=== PATIENT | female | born 1945 | race Caucasian/White ===

== ENCOUNTER → 2024-01-18 13:22 | Outpatient (REF) | payer OTHER, SELFPAY | LOC: WDC 13:22 | PROVIDERS: ATTENDING PHYSICIAN Physician Assistant | DX: Z12.31 Encounter for screening mammogram for malignant neoplasm of breast (principal) | CPT/HCPCS: 77063; 77067 ==

== ENCOUNTER 2024-04-07 06:41 | Emergency (ER) | payer OTHER, SELFPAY ==
[2024-04-07 06:51] VITALS: BP 141/70
[2024-04-07 07:21] VITALS: BMI 24.8
[2024-04-07 07:26] VITALS: BP 126/55
[2024-04-07] MEDS: NSS 1000 IV (07:39)
[2024-04-07] MEDS: PROTONIX IV 40 MG IV (07:41)
[2024-04-07 07:48] LABS: % Basophils 0.5 % (0-2); % Eosinophils 0.4 % (0-6); % Immature Granulocytes 0.2 % (0-0.5); % Lymphocytes 10.4 % (20.5-51.1); % Monocytes 6.4 % (1.7-9.3); % Neutrophils 82.1 % (42.2-75.2); Absolute Lymphocytes 0.9 10^3/uL (1.2-3.4); Absolute Monocytes 0.6 10^3/uL (0.1-0.6); Hematocrit 39.4 % (37.0-47.0); Hemoglobin 13.5 g/dL (12.0-16.0); Mean Corp Hgb Conc. 34.3 g/dL (33.0-37.0); Mean Corpuscular Hgb 29.9 pg (27.0-31.0); Mean Corpuscular Volume 87.2 fL (81.0-99.0); Mean Platelet Volume 10.3 fL (7.4-10.4); Nucleated Red Blood Cells % 0 %; Platelet Count 202 10^3/uL (130-400); Red Blood Cell Count 4.52 10^6/uL (4.20-5.40); Red Cell Dist. Width 12.4 % (11.5-14.5); Urine Albumin Trace (Neg - Trace); Urine Bilirubin 1+ (Negative); Urine Character Clear (Clear); Urine Color Yellow; Urine Glucose Negative (Negative); Urine Ketone Negative (Negative); Urine Leukocyte 1+ (Negative); Urine Nitrite Negative (Negative); Urine Occult Blood Negative (Negative); Urine Urobilinogen Negative (Neg - 1+); White Blood Cell Count 8.6 10^3/uL (4.8-10.8)
[2024-04-07 08:00] VITALS: BP 123/55
[2024-04-07 08:00] LABS: ALT (SGPT) 21 U/L (0-35); AST (SGOT) 27 U/L (14-36); Albumin 4.8 g/dl (3.5-5.0); Alkaline Phosphatase 43 U/L (38-126); Blood Urea Nitrogen 20 mg/dl (7-17); Calcium 10.4 mg/dl (8.4-10.2); Carbon Dioxide 25 mmol/L (22-30); Chloride 105 mmol/L (98-107); Estimated Creatinine Clearance 49 ml/min; Glucose 147 mg/dl (70-99); Lipase 147 U/L (23-300); Potassium 4.1 mmol/L (3.5-5.1); Sodium 137 mmol/L (135-145); Total Bilirubin 0.6 mg/dl (0.2-1.3); Total Protein 7.2 g/dl (6.3-8.2); eGFR > 60.00
[2024-04-07 08:03] LABS: Urine Mucus Moderate
[2024-04-07 08:04] LABS: Urine Bacteria Moderate (Negative); Urine Red Blood Cell 0-2 /HPF (0-2)
--- NOTE | 2024-04-07 08:27 | ED.GENMED ---
Addendum entered and electronically signed by Jaimie Castorena PA-C 04/12/24 07:23:
Urine culture grew out strep and staph, not Enterococcus. It was sensitive to Macrobid, Bactrim, Augmentin. Patient had been here for abdominal pain and symptoms that she thought were from a small bowel obstruction. I spoke with the patient. She
is able to tolerate food and is not having any vomiting or fever but she does have some lingering lower abdominal pain. Given this we will treat with antibiotics. Bactrim interferes with losartan so we will do Macrobid twice a day.
Original Note:
History of Present Illness
General
Chief Complaint: Abdominal Pain
Source: patient
Exam Limitations: none
Time Seen by Provider: 04/07/24 07:02
Nursing documentation reviewed up to this point in time: agreed with
Travel History
Have you had any contact with someone who has COVID-19?: No
Do you have any symptoms of coronavirus? Fever > 100 degrees, chills, cough, shortness of breath, sore throat, loss of taste or smell, muscle aches, or headache?: No
History of Present Illness
History of Present Illness:
Pt presents to ED secondary to sudden onset of abdominal pain, starting around 10 pm. Pain continued until 5am this morning, when she had one episode of vomiting, followed by normal bowel movement. Since then, symptoms have improved significantly.
Abdominal pain described as sharp, nonradiating, without any alleviating/exacerbating symptoms. Denies trauma. Denies recent change in medications/diet. Patient has had symptoms in the past, including last year, when she was admitted and treated
for small bowel obstruction.
Past History
Past History
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
ED Past Surgical History: Bowel resection (Lysis of adhesions 1997, partial bowel resection for diverticulitis 2009) and Gynecological (Hysterectomy 1977)
Social History
Tobacco: Non-smoker
Personal:
Living: with family
Employment: Not employed
Family History
Family History: Other (Noncontributory)
Review of Systems
Review of Systems
Allergies reviewed?: Yes
All Other Systems: ROS reviewed and negative except as documented in HPI and ROS
Constitutional: Reports no symptoms
EENT: Reports no symptoms
Respiratory: Reports no symptoms
Cardiac: Reports no symptoms
ABD/GI: Reports abdominal pain, nausea and vomiting; Denies diarrhea
: Reports no symptoms
Musculoskeletal: Reports no symptoms
Skin: Reports no symptoms
Neurological: Reports no symptoms
Phy Exam
Physical Exam
Physical Exam:
Physical Exam
General: no apparent distress, not acutely ill. afebrile.
Head: nc/at. eomi
Neck: supple. no meningeal signs.
Heart: s1/s2 regular rate and rhythm, no murmur. equal radial pulses.
Lungs: no acute respiratory distress. clear bilaterally
Abdomen: normal bowel sounds. not tender.
Neuro: alert and oriented. no focal neurological deficits
Skin: no rash
Psychiatric: well kept. interactive and cooperative
Extremities: no edema. no calf tenderness.
Course
Orders/Labs/Results
Orders:
Orders
04/07/24 07:02
CR Obstruct Series W/pa Chest Urgent
Comment:
Reason For Exam: abd pain w hx SBO
04/07/24 07:36
CMP [Comprehensive Metabolic Panel] Urgent
Complete Blood Count/With Diff Urgent
Lipase Urgent
Urinalysis Reflex To Culture Urgent
Date Specimen was Collected: 04/07/24
Time Specimen was Collected: 07:29
Urine Microscopic Reflex Cult Urgent
Urine Culture Urgent
KEMAR Source: U
Specimen Description:
Date Specimen was Collected: 04/07/24
Time Specimen was Collected: 07:29
05/09/24 07:38
0.9% Sodium Chloride 1000 ml [Nss] 1,000 ml IV BOLUS
Pantoprazole [Protonix IV] 40 mg IV NOW STA
Abnormal Lab Results
04/07/24
07:36
Absolute Neuts (auto) 7.0 H 10^3/uL
(1.4-6.5)
Absolute Lymphs (auto) 0.9 L 10^3/uL
(1.2-3.4)
Neutrophils % 82.1 H %
(42.2-75.2)
Lymphocytes % 10.4 L %
(20.5-51.1)
BUN 20 H mg/dl
(7-17)
Glucose 147 H mg/dl
(70-99)
Calcium 10.4 H mg/dl
(8.4-10.2)
Urine Bilirubin 1+ A
(Negative)
Leukocyte Esterase Rfl 1+ A
(Negative)
Urine Bacteria (Reflex) Moderate A
(Negative)
04/07/24 07:36
04/07/24 07:36
Vital Signs
Initial and Last Documented VS:
Initial Vital Signs
Temp Pulse Resp BP Pulse Ox
98.8 F 80 16 141/70 97
04/07/24 06:51 04/07/24 06:51 04/07/24 06:51 04/07/24 06:51 04/07/24 06:51
Last Documented Vital Signs
Temp Pulse Resp BP Pulse Ox
98.8 F 73 16 120/64 100
04/07/24 06:51 04/07/24 10:45 04/07/24 10:45 04/07/24 10:45 04/07/24 10:45
MDM/Problems Addressed
MDM/Problems Addressed:
Patient with unremarkable workup in ED, including blood work and x-ray. Patient also remains asymptomatic, with stable vital signs. Patient's presenting symptoms concerning for potential recurrent ileus versus early small bowel obstruction, which
now appears to have resolved completely. Patient feels comfortable going home at this time, with recommendation to continue hydration, but limit diet to liquid diet only starting tomorrow. Patient will return to ED immediately with recurrent
abdominal pain/vomiting.
*Critical Care Note
Total Time (30-74mins, 75-104mins- exclusive of procedures): Not Applicable
ED Attending Note
-
Portions of this chart may have been created with voice recognition software.� Occasional wrong word or��sound alike� substitutions may have occurred due to the inherent limitations of voice recognition software.
Discharge Plan
Departure
Patient Disposition: Home (Routine Discharge)
Date of Disposition: 04/07/24
Time of Disposition: 10:31
Patient with high blood pressure during this ER visit?: Yes
Condition: Good
Discharge Problem:
Abdominal pain
Instructions: Abdominal Pain
Prescriptions:
No Action
losartan 50 mg Tablet
50 mg PO BID
clopidogrel [Plavix] 75 mg Tablet
75 mg PO DAILY
pantoprazole 20 mg Tablet,Delayed Release (Dr/Ec)
20 mg PO DAILY
metoprolol tartrate 50 mg Tablet
50 mg PO Q12H
aspirin 81 mg Tablet,Chewable
81 mg PO DAILY
calcium carbonate-vitamin D2 600 mg calcium- 200 unit Tablet
1 tab PO DAILY
ezetimibe [Zetia] 10 mg Tablet
10 mg PO PER PROTOCOL
Rx Instructions:
4x week
omega-3 fatty acids-vitamin E 1,000 mg Capsule
1 cap PO DAILY
rosuvastatin [Crestor] 20 mg Tablet
20 mg PO DAILY
coQ10 (ubiquinol) 100 mg Capsule
100 mg PO BID
Referrals:
Sin Escobar MD [Family Provider] -
Activity Restrictions/Additional Instructions:
As discussed, please follow-up with your primary care physician and/or surgeon with any further concerns. Please return to ED immediately with recurrent abdominal pain.
Interventions
Interventions:
*Risk Screen - Suicide Last Done: 04/07/24 07:21
*General Assessment Last Done: 04/07/24 07:21
*Neglect/Abuse Screening Last Done: 04/07/24 07:21
ED- Fall Risk Assessment Last Done: 04/07/24 07:21
*ED COVID-19 Vaccine History Last Done: 04/07/24 07:21
*Nursing Disposition Last Done: 04/07/24 10:45
FJ-Itrkvo-Ilqiyyitkl Assessment Last Done: 04/07/24 07:21
Discharge Date and Time
Discharge Date/Time: 04/07/24 10:55
Print Language: WELSH
[2024-04-07 09:00] VITALS: BP 134/56
[2024-04-07 10:12] VITALS: BP 120/67
[2024-04-07 10:45] VITALS: BP 120/64
--- NOTE | 2024-04-07 10:50 | EDRN ---
REviewed discharge instructions with patient. Verbalized understanding.
== END 2024-04-07 10:55 | disposition home or self-care (01) ==
LOC: EMR 06:41
PROVIDERS: EMERGENCY PHYSICIAN Emergency Medicine; FAMILY PHYSICIAN Internal Medicine
DX: R10.9 Unspecified abdominal pain (principal); K21.9 Gastro-esophageal reflux disease without esophagitis; I10 Essential (primary) hypertension; E78.00 Pure hypercholesterolemia, unspecified; Z86.73 Personal history of transient ischemic attack (TIA), and cerebral infarction without residual deficits; Z90.710 Acquired absence of both cervix and uterus
CPT/HCPCS: 99283; 96374; 96361; 74022; 80053; 81003; 81015; 83690; 85025; 87077; 87086; 87147; 87186

== ENCOUNTER 2024-07-01 02:14 | Inpatient (IN) | payer OTHER, SELFPAY ==
[2024-06-30 19:16] VITALS: BP 144/75
[2024-06-30 19:42] LABS: % Basophils 0.4 % (0-2); % Eosinophils 0.3 % (0-6); % Immature Granulocytes 0.2 % (0-0.5); % Lymphocytes 12.1 % (20.5-51.1); % Monocytes 7.5 % (1.7-9.3); % Neutrophils 79.5 % (42.2-75.2); Absolute Basophils 0.1 10^3/uL (0-0.2); Absolute Lymphocytes 1.5 10^3/uL (1.2-3.4); Absolute Monocytes 0.9 10^3/uL (0.1-0.6); Absolute Neutrophils 9.7 10^3/uL (1.4-6.5); Hemoglobin 14.1 g/dL (12.0-16.0); Mean Corp Hgb Conc. 35.3 g/dL (33.0-37.0); Mean Corpuscular Hgb 29.9 pg (27.0-31.0); Mean Corpuscular Volume 84.7 fL (81.0-99.0); Mean Platelet Volume 10.1 fL (7.4-10.4); Nucleated Red Blood Cells % 0 %; Platelet Count 254 10^3/uL (130-400); Red Blood Cell Count 4.72 10^6/uL (4.20-5.40); Red Cell Dist. Width 12.8 % (11.5-14.5); White Blood Cell Count 12.2 10^3/uL (4.8-10.8)
[2024-06-30 19:44] LABS: Urine Albumin 1+ (Neg - Trace); Urine Bilirubin 1+ (Negative); Urine Character Clear (Clear); Urine Color Yellow; Urine Glucose Negative (Negative); Urine Ketone Trace (Negative); Urine Leukocyte 2+ (Negative); Urine Nitrite Negative (Negative); Urine Occult Blood Trace (Negative); Urine Specific Gravity 1.015 (<1.030); Urine Urobilinogen 1+ (Neg - 1+); Urine pH 6.5 (5.0-9.0)
[2024-06-30 20:00] VITALS: BP 145/58
[2024-06-30 20:01] LABS: ALT (SGPT) 19 U/L (0-35); AST (SGOT) 28 U/L (14-36); Albumin 5.1 g/dl (3.5-5.0); Alkaline Phosphatase 47 U/L (38-126); Blood Urea Nitrogen 16 mg/dl (7-17); Calcium 10.2 mg/dl (8.4-10.2); Carbon Dioxide 27 mmol/L (22-30); Chloride 101 mmol/L (98-107); Glucose 137 mg/dl (70-99); Potassium 4.3 mmol/L (3.5-5.1); Sodium 138 mmol/L (135-145); Total Bilirubin 1.1 mg/dl (0.2-1.3); Total Protein 7.6 g/dl (6.3-8.2); eGFR 56.95
[2024-06-30 20:03] LABS: Lipase 100 U/L (23-300)
[2024-06-30 20:06] LABS: Urine Bacteria Few (Negative); Urine Red Blood Cell 0-2 /HPF (0-2); Urine White Cell 16-20 /HPF (0-5)
[2024-06-30 20:31] VITALS: BMI 24.4
--- NOTE | 2024-06-30 20:38 | ED.GENMED ---
History of Present Illness
General
Chief Complaint: Abdominal Pain
Source: patient
Exam Limitations: none
Time Seen by Provider: 06/30/24 20:11
History of Present Illness
History of Present Illness:
79-year-old female presents with lower abdominal pain onset last night worse today with associated vomiting. She denies urinary symptoms. No fever. She has a history remotely of diverticulitis with perforation requiring colon resection. She also
has a history of small bowel obstructions. She is on aspirin and Plavix. Last bowel movement yesterday. No chest pain. No other complaints at this time
Past History
Past History
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
ED Past Surgical History: Bowel resection (Lysis of adhesions 1997, partial bowel resection for diverticulitis 2009) and Gynecological (Hysterectomy 1977)
Social History
Tobacco: Non-smoker
Personal:
Living: with family
Employment: Not employed
Family History
Family History: Other (Noncontributory)
Phy Exam
Physical Exam
Physical Exam:
General: Well-appearing female no acute distress
HEENT: Normocephalic atraumatic
Heart: Regular rate and rhythm no murmurs
Lungs: Clear no wheeze or rales
Extremities: No cyanosis or edema abdomen soft tender to the lower abdomen left greater than the right. Mild guarding no rebound tenderness
Skin: Warm no rash
Course
Orders/Labs/Results
Orders:
Orders
06/30/24 19:22
IV Insert/Care/Rem.- Treatment PRN
Straight cath- Treatment ONCE
06/30/24 19:35
Complete Blood Count/With Diff Urgent
Comprehensive Metabolic Panel Urgent
Lipase Urgent
Urinalysis Reflex To Culture Urgent
Date Specimen was Collected: 06/30/24
Time Specimen was Collected: 19:22
Urine Microscopic Reflex Cult Urgent
Urine Culture Urgent
KEMAR Source: U
Specimen Description:
Date Specimen was Collected: 06/30/24
Time Specimen was Collected: 19:
06/30/24 20:30
CT Abd/pel W Iv And Oral Contr Urgent
Comment:
Reason For Exam: lower abdominal pain
0.9% Sodium Chloride 1000 ml [Nss] 1,000 ml IV BOLUS
Diphenhydramine [Benadryl] 50 mg IV NOW STA
Hydrocortisone Sod Succinate [Solu-Cortef] 200 mg IV NOW STA
Iohexol [Omnipaque] See Protocol PO NOW STA
06/30/24 20:51
Ondansetron Injectable [Zofran] 4 mg IV NOW STA
Abnormal Lab Results
06/30/24
19:35
WBC 12.2 H 10^3/uL
(4.8-10.8)
Absolute Neuts (auto) 9.7 H 10^3/uL
(1.4-6.5)
Absolute Monos (auto) 0.9 H 10^3/uL
(0.1-0.6)
Neutrophils % 79.5 H %
(42.2-75.2)
Lymphocytes % 12.1 L %
(20.5-51.1)
Glucose 137 H mg/dl
(70-99)
Albumin 5.1 H g/dl
(3.5-5.0)
Urine Ketones Trace A
(Negative)
Ur Occult Blood Reflex Trace A
(Negative)
Urine Bilirubin 1+ A
(Negative)
Leukocyte Esterase Rfl 2+ A
(Negative)
Urine WBC (Reflex) 16-20 A /HPF
(0-5)
Urine Bacteria (Reflex) Few A
(Negative)
Urine Albumin (Reflex) 1+ A
(Neg - Trace)
06/30/24 19:35
06/30/24 19:35
Vital Signs
Initial and Last Documented VS:
Initial Vital Signs
Temp Pulse Resp BP Pulse Ox
98.6 F 82 20 144/75 97
06/30/24 19:16 06/30/24 19:16 06/30/24 19:16 06/30/24 19:16 06/30/24 19:16
Last Documented Vital Signs
Temp Pulse Resp BP Pulse Ox
98.6 F 80 16 154/69 95
06/30/24 19:16 07/01/24 00:12 07/01/24 00:12 07/01/24 00:12 07/01/24 00:12
MDM/Problems Addressed
Differential Diagnosis Includes:
Abdominal pain with vomiting. Consider viral illness versus diverticulitis versus bowel obstruction
Check labs. Patient quite tender on exam. CT pending. Fluids ordered. She is allergic to IV dye but will pretreat with steroid and Benadryl. Given history of bowel resection and small body stature, oral contrast was ordered as well
*Critical Care Note
Total Time (30-74mins, 75-104mins- exclusive of procedures): Not Applicable
Update Note
Update Note:
CT reviewed and demonstrates high-grade small bowel obstruction with transition point in the right pelvis. Patient reexamined. Still no vomiting. Appears comfortable. Will admit to hospital.
ED Attending Note
-
Portions of this chart may have been created with voice recognition software.� Occasional wrong word or��sound alike� substitutions may have occurred due to the inherent limitations of voice recognition software.
Discharge Plan
Departure
Patient Disposition: Admit
Date of Disposition: 07/01/24
Time of Disposition: 00:20
Admit to: Med/Surg
Presentation/result/management discussed w/ accepting MD/DO: Hospitalist
Discharge Problem:
SBO (small bowel obstruction)
Prescriptions:
No Action
losartan 50 mg Tablet
50 mg PO BID
clopidogrel [Plavix] 75 mg Tablet
75 mg PO DAILY
pantoprazole 20 mg Tablet,Delayed Release (Dr/Ec)
20 mg PO DAILY
metoprolol tartrate 50 mg Tablet
50 mg PO Q12H
aspirin 81 mg Tablet,Chewable
81 mg PO DAILY
calcium carbonate-vitamin D2 600 mg calcium- 200 unit Tablet
1 tab PO DAILY
ezetimibe [Zetia] 10 mg Tablet
10 mg PO PER PROTOCOL
Rx Instructions:
4x week
omega-3 fatty acids-vitamin E 1,000 mg Capsule
1 cap PO DAILY
rosuvastatin [Crestor] 20 mg Tablet
20 mg PO DAILY
coQ10 (ubiquinol) 100 mg Capsule
100 mg PO BID
nitrofurantoin macrocrystal 100 mg capsule
100 mg PO BID 7 Days Qty: 14 0RF
Referrals:
Reilly Goetz MD [Family Provider] -
Interventions
Interventions:
*Risk Screen - Suicide Last Done: 06/30/24 19:16
*General Assessment Last Done: 06/30/24 19:16
*Neglect/Abuse Screening Last Done: 06/30/24 19:16
ED- Fall Risk Assessment Last Done: 06/30/24 19:16
*ED COVID-19 Vaccine History Last Done: 06/30/24 19:16
VN-Xkbrxm-Stjdwxkmvt Assessment Last Done: 06/30/24 21:30
Discharge Date and Time
Print Language: JAPANESE
[2024-06-30] MEDS: NSS 1000 IV (20:42)
[2024-06-30] MEDS: OMNIPAQUE 50 ML PO (20:56)
[2024-06-30] MEDS: ZOFRAN 4 MG IV (20:57)
[2024-06-30] MEDS: SOLU-CORTEF 200 MG IV (20:57)
[2024-06-30] MEDS: BENADRYL 50 MG IV (20:58)
[2024-06-30 22:00] VITALS: BP 140/56
[2024-07-01] VITALS (12 sets, daily range): BP systolic 111–154; BP diastolic 52–69; BMI 24.4
[2024-07-01] MEDS: DILAUDID 0.5 MG IV ×4 (00:39→18:27)
[2024-07-01] MEDS: FLUSH (NSS) 1 FLUSH IV (00:41)
[2024-07-01] MEDS: ZOFRAN 4 MG IV (00:44)
--- NOTE | 2024-07-01 01:20 | HPS.HSE ---
Family Physician
-
Family Physician: Reilly Goetz
Chief Complaint
-
abdominal pain and vomiting
History of Present Illness
Ms. Carmen Portillo is a 79 yo woman with hx CVA, essential hypertension, remote sigmoidectomy due to perforation and ex lap with lysis of adhesions 1997, recurrent SBO presents to the ER with abdominal pain and vomiting.
Symptoms started 8PM yesterday evening. She vomited 2-3 times. She tried to just eat clears at home but had pain so came to the ER. Not passing gas. No fevers/chills. No chest pain. No shortness of breath. No LE swelling.
Currently nausea and pain significantly improved post zofran and dilaudid.
Medical History
Past Medical History
Past Medical History: Reports Other
Additional Past Medical History:
ASCVD / Prior CVA
Hypertension
GERD
Diverticular Disease
Past Surgical History: Reports Other
Additional Past Surgical History:
INESSA / BSO
Ex Lap / LACHELLE (1997)
Sigmoidectomy (Diverticulitis with Perforation)
Right Tibial Marko
Right Foot ORIF
T&A
Social History
Tobacco: Non-smoker
Alcohol: Occasional
Drug: None
Family History
Family History: Not pertinent
Allergies / Home Medications
Allergies reflects when Allergies were last updated in [facility].
Home Medications with original date entered in [facility]
Allergy/Medication List:
Allergies
Allergy/AdvReac Type Severity Reaction Status Date / Time
iodine Allergy Swelling Verified 06/30/24 19:16
shrimp Allergy Tongue Verified 06/30/24 19:15
Swelling
Home Medications
aspirin 81 mg chewable tablet 81 mg PO DAILY Blood clot prevention/tx 12/27/22
calcium carb-ergocalciferol (vit D2) 600 mg calcium-200 unit tablet 1 tab PO DAILY Supplement 12/27/22
clopidogrel 75 mg tablet (Plavix) 75 mg PO DAILY Blood clot prevention/tx 12/27/22
coQ10 (ubiquinol) 100 mg capsule 100 mg PO BID Supplement 12/27/22
ezetimibe 10 mg tablet (Zetia) 10 mg PO .4XPER WEEK High cholesterol 12/27/22
losartan 50 mg tablet 50 mg PO BID Blood pressure 12/27/22
metoprolol tartrate 50 mg tablet 75 mg PO Q12H Blood pressure 12/27/22
omega-3 fatty acids-vitamin E 1,000 mg capsule 1 cap PO DAILY Supplement 12/27/22
pantoprazole 20 mg tablet,delayed release 20 mg PO DAILY Gastrointestinal issue 12/27/22
rosuvastatin 20 mg tablet (Crestor) 20 mg PO DAILY High cholesterol 12/27/22
Review of Systems
-
History Source: Patient
A 12 point ROS was completed and negative except as noted: Yes
Physical Exam
Vital Signs
Vital Signs
Temp Pulse Resp BP Pulse Ox
98.6 F 80 16 154/69 95
06/30/24 19:16 07/01/24 00:12 07/01/24 00:12 07/01/24 00:12 07/01/24 00:12
Physical Exam
General: No Apparent Distress and Conversant
HEENT: PERRLA
Respiratory: Clear; No Wheezes
Cardiac: S1/S2 and Regular Rhythm
GI: Soft and Non Tender
Musculoskeletal: No Edema
Skin: Warm and Dry; No Rash
Neuro: AO x 3
Psych: Calm
Laboratory Results
-
06/30/24 19:35
06/30/24 19:35
Laboratory Results
Total Bilirubin 1.1 mg/dl (0.2-1.3) 06/30/24 19:35
AST 28 U/L (14-36) 06/30/24 19:35
ALT 19 U/L (0-35) 06/30/24 19:35
Alkaline Phosphatase 47 U/L (38-126) 06/30/24 19:35
Lipase 100 U/L (23-300) 06/30/24 19:35
Data Reviewed
-
Diagnostic Radiology: Report Reviewed by me
Lab Data: Labs Reviewed by me
Impression/Plan
-
Ms. Carmen Portillo is a 79 yo woman with hx CVA, essential hypertension, remote sigmoidectomy due to perforation and ex lap with lysis of adhesions 1997, recurrent SBO presents to the ER with abdominal pain and vomiting.
Triage VS: T 98.6, P 82, RR 20, BP 144/75, SpO2 97%
LABS: WBC 12.2, Hg 14.1, PLT 254, Na 138, K+ 4.3, Cl 101, CO2 27, BUN 16, Cr 1.0, Glucose 137, T. Bili 1.1, AST 28, ALT 19, Alk Phos 47
Abdomen/Pelvis CT - moderate dilatation of the proximal and mis small bowel to the level of the right mid pelvis where there is a abrupt transition point... 'findings consistent with high-grade small bowel obstruction.'
MAR: Dilaudid x 2, Zofran x 2, Hydrocortisone, Benadryl (for contrast allergy)
Small Bowel Obstruction
Hx Sigmoidectomy
Hx lysis of adhesions 1997
Recurrent SBO
-admit to tele
-NPO
-IVF
-GS consult
-pain control
-zofran PRN
Hx CVA
-hold PLUG SHAPER HAND Plavix in case surgery indicated
-continue PLUG SHAPER HAND asa/statin
Essential HTN
-PLUG SHAPER HAND Metoprolol
-hold Losartan for now, monitor BP
GERD
-IV Protonix
Iodine allergy
-patient received steroids/benadryl pre-CT. she states hives usually start next day. will start daily claritin and have IV Benadryl PRN.
DVT PPx lovenox subQ
FULL CODE
76 minutes spent on patient evaluation, medical decision making, coordination of care
[2024-07-01] MEDS: LR 1000 IV ×2 (03:35→15:09)
[2024-07-01 06:45] LABS: Hematocrit 35.4 % (37.0-47.0); Hemoglobin 12.3 g/dL (12.0-16.0); Mean Corp Hgb Conc. 34.7 g/dL (33.0-37.0); Mean Corpuscular Hgb 30.7 pg (27.0-31.0); Mean Corpuscular Volume 88.3 fL (81.0-99.0); Mean Platelet Volume 10.6 fL (7.4-10.4); Platelet Count 213 10^3/uL (130-400); Red Blood Cell Count 4.01 10^6/uL (4.20-5.40); Red Cell Dist. Width 12.7 % (11.5-14.5); White Blood Cell Count 9.1 10^3/uL (4.8-10.8)
[2024-07-01 06:57] LABS: Blood Urea Nitrogen 14 mg/dl (7-17); Calcium 9.7 mg/dl (8.4-10.2); Carbon Dioxide 27 mmol/L (22-30); Chloride 105 mmol/L (98-107); Estimated Creatinine Clearance 48 ml/min; Glucose 144 mg/dl (70-99); Potassium 4.3 mmol/L (3.5-5.1); Sodium 140 mmol/L (135-145); eGFR > 60.00
[2024-07-01] MEDS: NSS (PRESERVATIVE FREE) 10 ML IV (07:51)
[2024-07-01] MEDS: PROTONIX IV 40 MG IV (07:51)
[2024-07-01] MEDS: TYLENOL 650 MG PO (07:54)
[2024-07-01] MEDS: LOPRESSOR 75 MG PO (07:59)
[2024-07-01] MEDS: LOW STRENGTH ASPIRIN 81 MG PO (08:00)
[2024-07-01] MEDS: CLARITIN 10 MG PO (09:27)
--- NOTE | 2024-07-01 11:38 | CON.GS ---
Addendum entered and electronically signed by Andres Mak MD 07/01/24 14:39:
Patient seen and examined in follow-up this afternoon with nurse practitioner. Agree with documented consultation note.
HPI: 79-year-old female with a past abdominal surgical history notable for having undergone INESSA/BSO, sigmoid resection for diverticulitis and exploratory laparotomy lysis of adhesions in 1997 for small bowel obstruction. She was briefly
hospitalized last November 2022 for small bowel obstruction which resolved with medical management.
She now presents with the acute onset of lower abdominal pain more on the left side and central. Nausea vomiting. Worsening pain yesterday despite fasting prompted emergency department evaluation overnight. She continues with some mild
discomfort/pain but it is improved from yesterday. No further vomiting since hospitalization and emergency department presentation. No recent flatus or bowel movement. Her bowels were moving regularly prior to symptoms.
Medical history notable for CVA, GERD and hypertension. Pertinent past surgical history as outlined above.
AFVSS
NAD AAOx3 pleasant and participatory for history taking comfortable in hospital bed
Abdomen: Softly protuberant, some tympany on percussion, mild tenderness left lower quadrant suprapubic but no rebound rigidity or guarding. Laparotomy surgical scar. No detectable hernias.
CT imaging reviewed. Oral contrast opacifies approximately distended small bowel loops. Distal small bowel loops collapsed with what appears to be a transition point in the region of the pelvis most likely. No radiographic findings suggestive of
closed-loop obstruction, bowel ischemia or threat.
Assessment/plan: 79-year-old female with recurrent small bowel obstruction likely secondary to adhesions given past surgical history as outlined above.
Given clinical stability and radiographic imaging without signs suggestive of bowel compromise or immediate threat recommend continued expectant management
Nausea has not returned nor vomiting and pain controlled therefore can hold on NG tube placement unless is to develop worsening obstructive symptoms.
Follow-up abdominal x-ray tomorrow a.m. to monitor for progression of ingested oral contrast from CT imaging
Otherwise continue with routine supportive care and IV fluid hydration
Will follow, thank you
Original Note:
Consultation
-
Date/Time Consultation Requested: 07/01/24 1017
Requesting Provider: Reagan
Medical History
-
Chief Complaint: abdominal pain
History of Present Illness:
Ms. Portillo is an 79 yo female with a h/o CVA on DAPT, INESSA/BSO, perforated diverticulitis with sigmoidectomy in the with subsequent development of small bowel obstruction from adhesions with exploratory laparotomy for LACHELLE with
cecopexy/appendectomy in 1997 without recurrence of obstruction until November, when she presented to for a SBO which resolved with medical management alone. She now presents with 2 days of LLQ abdominal discomfort with nausea and vomiting.
She notes that she has been doing well since her prior SBo and has been following a low fiber diet without recurrence of symptoms. Earlier this week, she ate a BLT and then the following day had some stuffed peppers. Several hours after having the
peppers, she developed LLQ pain near midline which has persisted since. She has not been able to pass flatus or stools since then and noted significant nausea with vomiting that night as well. Yesterday, she placed herself on a clear liquid diet but
her symptoms persisted causing her to present over night for evaluation. She currently denies nausea and notes she has not had any further vomiting since the initial onset of symptoms. Discomfort persists to the medial LLQ which she rates as a 2/10
with mild focal tenderness on exam. She denies fevers or chills.
Past Medical History
Past Medical History: CVA, Diverticulitis, GERD and HTN
Past Surgical History: Bowel Resection (sigmoidectomy), Gynecological (INESSA/BSO), Orthopedic (Right foot ORIF, Right Tibial sole), Tonsilectomy and Other (Ex Lap with LACHELLE and cecopexy/appendectomy 1997)
Social History
Tobacco: Non-Smoker
Alcohol: Occasional
Drug: None
Allergies / Home Medications
Allergy/AdvReac Type Severity Reaction Status Date / Time
iodine Allergy Swelling Verified 06/30/24 19:16
shrimp Allergy Tongue Verified 06/30/24 19:15
Swelling
�Medication �Instructions �Recorded �Confirmed �Type
aspirin 81 mg chewable tablet 81 mg PO DAILY Blood clot 12/27/22 07/01/24 History
prevention/tx
clopidogrel 75 mg tablet (Plavix) 75 mg PO HS Blood clot 12/27/22 07/01/24 History
prevention/tx
coQ10 (ubiquinol) 100 mg capsule 100 mg PO BID Supplement 12/27/22 07/01/24 History
ezetimibe 10 mg tablet (Zetia) 10 mg PO SUMOWEFR High cholesterol 12/27/22 07/01/24 History
losartan 50 mg tablet 50 mg PO BID Blood pressure 12/27/22 07/01/24 History
amlodipine 5 mg tablet (Norvasc) 5 mg PO DAILY Blood Pressure 07/01/24 07/01/24 History
metoprolol succinate 50 mg 75 mg PO BID Blood Pressure 07/01/24 07/01/24 History
tablet,extended release 24 hr
(Toprol XL)
pantoprazole 40 mg tablet,delayed 40 mg PO DAILY Gastrointestinal 07/01/24 07/01/24 History
release (Protonix) Issue
rosuvastatin 20 mg tablet 20 mg PO HS High Cholesterol 07/01/24 07/01/24 History
Review of Systems
-
A 10 point review of systems was completed, and was negative except as per HPI.
Physical Exam
Vital Signs
Temp Pulse Resp BP Pulse Ox
98.6 F 65 13 127/55 93
06/30/24 19:16 07/01/24 07:00 07/01/24 07:00 07/01/24 07:00 07/01/24 07:00
06/30/24 07/01/24 07/02/24
06:59 06:59 06:59
Actual Weight 64.4 kg
Body Mass Index (BMI) 24.4
Lab Results
07/01/24 06:06
07/01/24 06:06
WBC 9.1 10^3/uL (4.8-10.8) 07/01/24 06:06
Hgb 12.3 g/dL (12.0-16.0) 07/01/24 06:06
Hct 35.4 % (37.0-47.0) L 07/01/24 06:06
Plt Count 213 10^3/uL (130-400) 07/01/24 06:06
Abs Immat Gran (auto) 0.0 10^3/uL (0-0.05) 06/30/24 19:35
Neutrophils % 79.5 % (42.2-75.2) H 06/30/24 19:35
Physical Exam
General: Well Developed and Well Nourished
HEENT: Moist Mucous Membranes
Respiratory: Non Labored Respirations
GI: Soft, Tender (left of midline) and Distended (tympanitic)
Skin: Warm and Dry
Neuro: Awake, Alert and AO x 3
Psych: Calm
Data Reviewed
-
CT Scan: Image Personally Visualized and interpreted, Report Reviewed by me, Discussed with Physician, Discussed with Nurse and Discussed with Patient
Labs: Labs Reviewed by me, Discussed with Physician and Discussed with Patient
Old Records: Reviewed
Assessment / Plan
-
Ms. Portillo is an 79 yo female with a h/o CVA on DAPT, INESSA/BSO, perforated diverticulitis with sigmoidectomy in the with subsequent development of small bowel obstruction from adhesions with exploratory laparotomy for LACHELLE with
cecopexy/appendectomy in 1997 without recurrence of obstruction until November, when she presented to for a SBO which resolved with medical management alone. She developed left sided abdominal pain 2 days ago with nausea and vomiting. Pain
has persisted with resolution of n/v. CT imaging reviewed with findings consistent with a high grade sbo with transition point in the pelvis suspect secondary to adhesions. There is no evidence of bowel threat or compromise on imaging or exam. She
is afebrile with stable vital signs. She has mild leukocytosis.
--Keep NPO, ok for ice chips for comfort only
--NGT placement if vomiting recurs, ok to hold off for now
--IVF while NPO
--No plans for emergent surgery at this time, will follow for resolution with bowel rest/supportive care. Hold Plavix in case surgery becomes necessary.
--- NOTE | 2024-07-01 14:32 | W.PN.UPDATE ---
Update Note
Progress Note Update
Non-billable addendum (H&P entered 07/01 1 AM)
admitted with high-grade SBO (ate BLT and stuffed peppers earlier this week)
GS consulting and currently managing SBO conservatively
Assessment:
SBO
Hx of prior SBO
Hx of prior Sigmoidectomy
- CT: Findings consistent with high-grade small bowel obstruction with multiple dilated proximal and mid small bowel loops with transient point within the pelvis. Small amount of mesenteric edema and free fluid within the pelvis.
- conservative management with NPO, IVF, pain control, anti-emetics
- NGT as needed if vomiting
Hx of CVA
- holding Plavix in case of operative intervention
- continue ASA/Statin
Essential HTN
- continue BB
- hold ARB
GERD
- continue PPI IV
Iodine allergy
- prn Benadryl/Claritin for post-contrast hives
DVT ppx: Lovenox
Code: Full
[2024-07-01] MEDS: LOVENOX 40 MG SC (17:15)
[2024-07-01] MEDS: CRESTOR 20 MG PO (17:16)
[2024-07-01] MEDS: TOPROL XL 75 MG PO (19:51)
[2024-07-01] MEDS: BENADRYL 25 MG PO (21:40)
[2024-07-02 03:12] VITALS: BP 121/48
[2024-07-02] MEDS: LR 1000 IV (04:17)
[2024-07-02 07:00] VITALS: BP 125/48
[2024-07-02] MEDS: TOPROL XL 75 MG PO ×2 (07:53→19:46)
[2024-07-02] MEDS: CLARITIN 10 MG PO (07:53)
[2024-07-02] MEDS: NORVASC 5 MG PO (07:55)
[2024-07-02] MEDS: LOW STRENGTH ASPIRIN 81 MG PO (07:55)
[2024-07-02] MEDS: NSS (PRESERVATIVE FREE) 10 ML IV (07:56)
[2024-07-02] MEDS: PROTONIX IV 40 MG IV (07:56)
[2024-07-02 09:36] LABS: Blood Urea Nitrogen 17 mg/dl (7-17); Calcium 8.7 mg/dl (8.4-10.2); Carbon Dioxide 22 mmol/L (22-30); Chloride 108 mmol/L (98-107); Estimated Creatinine Clearance 48 ml/min; Glucose 66 mg/dl (70-99); Potassium 3.8 mmol/L (3.5-5.1); Sodium 137 mmol/L (135-145); eGFR > 60.00
--- NOTE | 2024-07-02 09:49 | W.PN.HOSP.TC ---
Today's Communication/Plan
-
clears
cap IVF
Assessment / Plan
Assessment / Plan
Assessment:
SBO
Hx of prior SBO
Hx of prior Sigmoidectomy
- CT: Findings consistent with high-grade small bowel obstruction with multiple dilated proximal and mid small bowel loops with transient point within the pelvis. Small amount of mesenteric edema and free fluid within the pelvis.
- f/u AXR 07/02: Oral contrast is now present throughout the colon, extending to the rectum. There is persistent mildly dilated loops of small bowel projecting over the mid abdomen. Constellation of findings likely represents resolving obstruction.
- never required NGT
- now start clears
- can cap IVF
- pain control, anti-emetics prn
Hx of CVA
- holding Plavix in case of operative intervention
- continue ASA/Statin
Essential HTN
- continue BB
- hold ARB
GERD
- continue PPI
Iodine allergy
- prn Benadryl/Claritin for post-contrast hives
DVT ppx: Lovenox
Code: Full
Anticipated Discharge: 24 - 48 hours
Subjective/Interval History
-
Date of Service: July 02, 2024
passing some gas and stool last evening, reports abd pain improving as well
AXR showing contrast passage into colon
Objective Data
-
Labs:
Laboratory Results
07/02/24
07:05
WBC Pending
Hgb Pending
Hct Pending
Plt Count Pending
Sodium 137
Potassium 3.8
Chloride 108 H
Carbon Dioxide 22
BUN 17
Creatinine 0.8
Glucose 66 L
Calcium 8.7
Vital Signs:
Vital Signs
Temp Pulse Resp BP Pulse Ox
98.4 F 71 18 125/48 94
07/02/24 07:00 07/02/24 07:53 07/02/24 07:00 07/02/24 07:53 07/02/24 08:57
Physical Exam
-
General: No Apparent Distress
HEENT: Normocephalic and Atraumatic
Respiratory: Negative Wheezes
Cardiac: Regular Rhythm and S1/S2
GI: Soft and Nontender
Genito-urinary: No Costovertebral Tender
Musculoskeletal: No Edema
Neuro: AO x 3
Hematologic / Lymphatic: No Lymphadenopathy
Psych: Calm
Data Reviewed
-
Total Time Spent with Patient (in minutes): 41
Labs: Labs Reviewed by me
--- NOTE | 2024-07-02 10:42 | CM ---
CM following re: discharge planning.
Reviewed pt's chart, met with pt.
Pt is an 79 year old female, admitted with primary dx of Small Bowel Obstruction.
Pt reports she lives with in a 2SH, 3 steps to enter, has 3 supportive children. 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 No DME, VN or SNF history.
PCP: Reilly Goetz
Pharmacy' [facility]
D/C plan: home with anticipated no needs. Family to transport at discharge.
CM will follow with discharge plan updates as hospitalization progresses
[2024-07-02 11:00] VITALS: BP 127/64
[2024-07-02 11:06] LABS: Hematocrit 33.8 % (37.0-47.0); Hemoglobin 11.6 g/dL (12.0-16.0); Mean Corp Hgb Conc. 34.3 g/dL (33.0-37.0); Mean Corpuscular Hgb 30.7 pg (27.0-31.0); Mean Corpuscular Volume 89.4 fL (81.0-99.0); Mean Platelet Volume 10.5 fL (7.4-10.4); Platelet Count 165 10^3/uL (130-400); Red Blood Cell Count 3.78 10^6/uL (4.20-5.40); Red Cell Dist. Width 12.8 % (11.5-14.5); White Blood Cell Count 6.3 10^3/uL (4.8-10.8)
--- NOTE | 2024-07-02 13:51 | W.PN.GS2 ---
Addendum entered and electronically signed by Andres Mak MD 07/02/24 15:12:
Patient seen and examined with surgical PUBLIC SERVICE ADMINISTRATOR. Agree with documented progress note with additions noted here. This is a delayed entry.
Patient reports clinical improvement with passage of flatus and bowel movement. Less abdominal pain and no nausea or vomiting. She still feels a bit crampy.
AFVSS
ABD: Soft, mild distention/protuberance, nontender
X-ray reviewed. Oral contrast from CT imaging study throughout colon. 1 or 2 loops of small bowel with mild gaseous distention but no air-fluid levels
Assessment/plan: 79-year-old female with recurrent partial small bowel obstruction
Clinically and radiographically improving
Start on clear liquid diet and follow
Original Note:
Today's Communication / Plan
-
Clear liquids
Assessment / Plan
-
79-year-old female with recurrent small bowel obstruction likely secondary to adhesions given past surgical history
Passing flatus/stools
XR abd with passage of contrast into the colon, some small bowel distention still noted
AFVSS
--Advance to clears today
--Follow exams/bowel pattern
--Analgesics/antiemetics prn
Subjective Data
-
Date of Service: July 02, 2024
Patient seen and examined at bedside with Dr. Mak. Denies n/v. Tolerating clears thus far. Passed some stools overnight with flatus.
Objective Data
-
Intake and Output
07/01/24 07/02/24 07/03/24
06:59 06:59 06:59
Other:
Number of approximated MODERATE 3
amounts of urine
Vital Signs
Temp Pulse Resp BP Pulse Ox
98.8 F 81 18 127/64 95
07/02/24 11:00 07/02/24 11:00 07/02/24 11:00 07/02/24 11:00 07/02/24 11:00
Lab Results
07/02/24 07:05
07/02/24 07:05
Calcium 8.7 mg/dl (8.4-10.2) 07/02/24 07:05
Magnesium 2.0 mg/dl (1.6-2.3) 07/01/24 06:06
Total Bilirubin 1.1 mg/dl (0.2-1.3) 06/30/24 19:35
AST 28 U/L (14-36) 06/30/24 19:35
ALT 19 U/L (0-35) 06/30/24 19:35
Alkaline Phosphatase 47 U/L (38-126) 06/30/24 19:35
Total Protein 7.6 g/dl (6.3-8.2) 06/30/24 19:35
Albumin 5.1 g/dl (3.5-5.0) H 06/30/24 19:35
Physical Exam
-
General: NAD
Neuro: Alert and Oriented
Resp: No distress, RRR
ABD: Soft
Mild distention
No tenderness
[2024-07-02 15:00] VITALS: BP 120/44
[2024-07-02] MEDS: LOVENOX 40 MG SC (17:05)
[2024-07-02] MEDS: CRESTOR 20 MG PO (17:05)
[2024-07-02 19:24] VITALS: BP 140/56
[2024-07-02 23:03] VITALS: BP 129/52
[2024-07-03 03:08] VITALS: BP 125/55
[2024-07-03 07:00] VITALS: BP 118/55
[2024-07-03] MEDS: NORVASC 5 MG PO (08:01)
[2024-07-03] MEDS: CLARITIN 10 MG PO (08:01)
[2024-07-03] MEDS: LOW STRENGTH ASPIRIN 81 MG PO (08:01)
[2024-07-03] MEDS: TOPROL XL 75 MG PO ×2 (08:01→21:22)
[2024-07-03] MEDS: PROTONIX 40 MG PO (08:01)
--- NOTE | 2024-07-03 10:27 | W.PN.GS2 ---
Addendum entered and electronically signed by Andres Mak MD 07/03/24 10:49:
Patient seen and examined with surgical SEDIMENTATIONIST. Agree with documented progress note.
Patient feels better than initially but still with cramps lower abdominal fullness and sensation of distention.
Tolerating clears without nausea but appetite not returning
AFVSS
ABD: Softly distended, mild tenderness lower abdomen. No rebound rigidity or guarding. Lower vertical midline surgical scar. Pfannenstiel surgical scar.
Assessment/plan: 79-year-old female with recurrent partial small bowel obstruction likely secondary to adhesions
Mild persistent low-grade obstructive symptoms
Dulcolax suppository x 1
follow up abd x ray tomorrow AM
- if significant improvment may consider SBFT tomorrow
- if continued pSBO symptoms/sign likely to OR for lap possible open lysis
Original Note:
Today's Communication / Plan
-
NPO after MN for tentative OR
Assessment / Plan
-
79-year-old female with recurrent small bowel obstruction likely secondary to adhesions given past surgical history
XR abd with passage of contrast into the colon, some small bowel distention still noted suggestive of a partial obstruction
+bloating/discomfort persists. Passing flatus/stools.
AFVSS
--Clears as tolerated
--Dulcolax suppository today
--Follow exams/bowel pattern
--Analgesics/antiemetics prn
--Medical management as per primary mata
--Continue to hold Plavix. LD was 06/29
Pending patient progress will plan either OR in am if no improvement/worsening symptoms vs SBFT if feeling better. NPO after MN.
Subjective Data
-
Date of Service: July 03, 2024
Patient seen and examined at bedside with Dr. Mak. Denies n/v. Cramping and abdominal pain overnight into this am. Passed a small BM last night.
Objective Data
-
Intake and Output
07/02/24 07/03/24 07/04/24
06:59 06:59 06:59
Intake Total 1200 / 1200
Balance 1200 / 1200
Intake:
Oral fluids 1200 / 1200
Other:
Number of approximated MODERATE 3 3
amounts of urine
Vital Signs
Temp Pulse Resp BP Pulse Ox
98.2 F 67 18 118/55 98
07/03/24 07:00 07/03/24 08:01 07/03/24 07:00 07/03/24 08:01 07/03/24 08:16
Lab Results
07/02/24 07:05
07/02/24 07:05
Calcium 8.7 mg/dl (8.4-10.2) 07/02/24 07:05
Magnesium 2.0 mg/dl (1.6-2.3) 07/01/24 06:06
Total Bilirubin 1.1 mg/dl (0.2-1.3) 06/30/24 19:35
AST 28 U/L (14-36) 06/30/24 19:35
ALT 19 U/L (0-35) 06/30/24 19:35
Alkaline Phosphatase 47 U/L (38-126) 06/30/24 19:35
Total Protein 7.6 g/dl (6.3-8.2) 06/30/24 19:35
Albumin 5.1 g/dl (3.5-5.0) H 06/30/24 19:35
Physical Exam
-
General: NAD
Neuro: Alert and Oriented
Resp: No distress, RRR
ABD: Soft
Mild distention
Mild generalized tenderness
[2024-07-03 11:00] VITALS: BP 157/70
--- NOTE | 2024-07-03 12:12 | W.PN.HOSP.TC ---
Today's Communication/Plan
-
clears and repeat imaging in AM to determine if continuing with ongoing conservative management vs operative intervention
Assessment / Plan
Assessment / Plan
Assessment:
SBO
Hx of prior SBO
Hx of prior Sigmoidectomy
- CT: Findings consistent with high-grade small bowel obstruction with multiple dilated proximal and mid small bowel loops with transient point within the pelvis. Small amount of mesenteric edema and free fluid within the pelvis.
- f/u AXR 07/02: Oral contrast is now present throughout the colon, extending to the rectum. There is persistent mildly dilated loops of small bowel projecting over the mid abdomen. Constellation of findings likely represents resolving obstruction.
- never required NGT
- continue clears
- suppositories
- serial imaging in AM
- may need OR for lysis of adhesions if no improvement in 24 hours
- pain control, anti-emetics prn
Hx of CVA
- holding Plavix in case of operative intervention
- continue ASA/Statin
Essential HTN
- continue BB
- hold ARB
GERD
- continue PPI
Iodine allergy
- prn Benadryl/Claritin for post-contrast hives
DVT ppx: Lovenox
Code: Full
Anticipated Discharge: 24 - 48 hours
Subjective/Interval History
-
Date of Service: July 03, 2024
cramping and abd pain overnight, small BM last night
Objective Data
-
Vital Signs:
Vital Signs
Temp Pulse Resp BP Pulse Ox
98.3 F 74 18 157/70 97
07/03/24 11:00 07/03/24 11:00 07/03/24 11:00 07/03/24 11:00 07/03/24 11:00
I&O
07/02/24 07/03/24 07/04/24
06:59 06:59 06:59
Intake Total 1200 / 1200
Balance 1200 / 1200
Physical Exam
-
General: No Apparent Distress
HEENT: Normocephalic and Atraumatic
Respiratory: Negative Wheezes
Cardiac: Regular Rhythm and S1/S2
GI: Soft
Genito-urinary: No Costovertebral Tender
Neuro: AO x 3
Psych: Calm
Data Reviewed
-
Total Time Spent with Patient (in minutes): 42
Labs: Labs Reviewed by me
[2024-07-03 15:00] VITALS: BP 145/56
[2024-07-03] MEDS: DULCOLAX 10 MG RECTAL (15:26)
[2024-07-03] MEDS: LOVENOX 40 MG SC (17:11)
[2024-07-03] MEDS: CRESTOR 20 MG PO (17:11)
[2024-07-03 23:19] VITALS: BP 144/60
[2024-07-04] VITALS (11 sets, daily range): BP systolic 105–149; BP diastolic 41–74
[2024-07-04] MEDS: CLARITIN 10 MG PO (08:18)
[2024-07-04] MEDS: TOPROL XL 75 MG PO (08:21)
[2024-07-04] MEDS: PROTONIX 40 MG PO (08:21)
[2024-07-04] MEDS: NORVASC 5 MG PO (08:22)
[2024-07-04 10:05] LABS: Hematocrit 38.4 % (37.0-47.0); Hemoglobin 13.4 g/dL (12.0-16.0); Mean Corp Hgb Conc. 34.9 g/dL (33.0-37.0); Mean Corpuscular Volume 85.9 fL (81.0-99.0); Mean Platelet Volume 10.2 fL (7.4-10.4); Platelet Count 243 10^3/uL (130-400); Red Blood Cell Count 4.47 10^6/uL (4.20-5.40); Red Cell Dist. Width 12.3 % (11.5-14.5)
--- NOTE | 2024-07-04 10:26 | W.PN.GS2 ---
Addendum entered and electronically signed by Elver Vogt MD 07/04/24 10:49:
I saw and examined the patient independently.
[employer] Team Member's note was reviewed and I agree with the note, assessment and plan except where noted below.
Comment: 79-year-old female with recurrent adhesive small bowel obstructions. Clinically improved however given the recurrent nature and decreased quality of life her small bowel obstructions pose we will continue with planned diagnostic
laparoscopy today. All questions answered.
Dr. Mak will obtain consent prior to surgery.
IV antibiotics ordered on-call to the OR.
Original Note:
Today's Communication / Plan
-
OR today
Assessment / Plan
-
79-year-old female with recurrent small bowel obstruction likely secondary to adhesions given past surgical history
XRs abd with passage of contrast into the colon, some small bowel distention still noted suggestive of a partial obstruction
+Small stools, not much flatus. Cramping with clear liquids yesterday.
AFVSS
--NPO for OR today for dx laparoscopy with Dr. Mak
--Analgesics/antiemetics prn
--Medical management as per primary mata
--Continue to hold Plavix. LD was 06/29
Subjective Data
-
Date of Service: July 04, 2024
Patient seen and examined at bedside with Dr. vogt. Not passing much flatus but did have a small stool yesterday. Denies pain today. Feeling better than previous but not back to normal yet.
Objective Data
-
Intake and Output
07/03/24 07/04/24 07/05/24
06:59 06:59 06:59
Intake Total 1200 / 1200 1160 / 1160
Balance 1200 / 1200 1160 / 1160
Intake:
Oral fluids 1200 / 1200 1160 / 1160
Other:
Number of approximated MODERATE 3 3
amounts of urine
Vital Signs
Temp Pulse Resp BP Pulse Ox
98.5 F 63 18 149/68 97
07/04/24 07:00 07/04/24 07:00 07/04/24 07:00 07/04/24 07:00 07/04/24 07:00
Lab Results
07/04/24 09:13
Calcium 8.7 mg/dl (8.4-10.2) 07/02/24 07:05
Magnesium 2.0 mg/dl (1.6-2.3) 07/01/24 06:06
Total Bilirubin 1.1 mg/dl (0.2-1.3) 06/30/24 19:35
AST 28 U/L (14-36) 06/30/24 19:35
ALT 19 U/L (0-35) 06/30/24 19:35
Alkaline Phosphatase 47 U/L (38-126) 06/30/24 19:35
Total Protein 7.6 g/dl (6.3-8.2) 06/30/24 19:35
Albumin 5.1 g/dl (3.5-5.0) H 06/30/24 19:35
Physical Exam
-
General: NAD
Neuro: Alert and Oriented
Resp: No distress, RRR
ABD: Soft
Minimal distention
NT
[2024-07-04 10:38] LABS: INR 1.04; PT 13.4 Sec (11.4-14.6)
[2024-07-04 10:39] LABS: APTT 41.7 Sec (23.4-35.0)
--- NOTE | 2024-07-04 10:48 | W.PN.HOSP.TC ---
Today's Communication/Plan
-
NPO
f/w surgery recommendation
c/w BB, PPI
Assessment / Plan
Assessment / Plan
Physical Exam
General: No Apparent Distress and Conversant
HEENT: PERRLA
Respiratory: Clear; No Wheezes
Cardiac: S1/S2 and Regular Rhythm
GI: Soft and mildly tender. Normal BS
Musculoskeletal: No Edema
Skin: Warm and Dry; No Rash
Neuro: AO x 3
Psych: Calm
Assessment:
SBO
Hx of prior SBO
Hx of prior Sigmoidectomy
- CT: Findings consistent with high-grade small bowel obstruction with multiple dilated proximal and mid small bowel loops with transient point within the pelvis. Small amount of mesenteric edema and free fluid within the pelvis.
- f/u AXR 07/02: Oral contrast is now present throughout the colon, extending to the rectum. There is persistent mildly dilated loops of small bowel projecting over the mid abdomen. Constellation of findings likely represents resolving obstruction.
- She feels less pain, passed gas over night. Had rectal suppository yesterday. WBC is normal now.
- never required NGT
- She is NPO for diagnostic laparoscopy
- pain control, anti-emetics prn
- Appreciate surgery help
Hx of CVA
- holding Plavix in case of operative intervention
- continue ASA/Statin
Essential HTN
- continue BB
- hold ARB
GERD
- continue PPI
Iodine allergy
- prn Benadryl/Claritin for post-contrast hives
DVT ppx: Lovenox
Code: Full
Total time spent to see the patient, examine the patient on the floor, review data and lab results, discuss treatment plan with patient, surgery team, nursing staff around 55 minutes.
Anticipated Discharge: 24 - 48 hours
Subjective/Interval History
-
Date of Service: July 04, 2024
Less pain, passed gas over night but feels still obstructed ( partially)
No chest pain
No fevers
Objective Data
-
Labs:
Laboratory Results
07/04/24
09:13
WBC 6.0
Hgb 13.4
Hct 38.4
Plt Count 243 D
PT 13.4
INR 1.04
APTT 41.7 H
Sodium Pending
Potassium Pending
Chloride Pending
Carbon Dioxide Pending
BUN Pending
Creatinine Pending
Glucose Pending
Calcium Pending
Vital Signs:
Vital Signs
Temp Pulse Resp BP Pulse Ox
98.5 F 63 18 149/68 97
07/04/24 07:00 07/04/24 07:00 07/04/24 07:00 07/04/24 07:00 07/04/24 07:00
I&O
07/03/24 07/04/24 07/05/24
06:59 06:59 06:59
Intake Total 1200 / 1200 1160 / 1160
Balance 1200 / 1200 1160 / 1160
[2024-07-04] MEDS: LOW STRENGTH ASPIRIN 81 MG PO (11:43)
[2024-07-04 11:47] LABS: Blood Urea Nitrogen 8 mg/dl (7-17); Calcium 9.7 mg/dl (8.4-10.2); Carbon Dioxide 28 mmol/L (22-30); Chloride 102 mmol/L (98-107); Estimated Creatinine Clearance 55 ml/min; Glucose 89 mg/dl (70-99); Potassium 3.9 mmol/L (3.5-5.1); Sodium 141 mmol/L (135-145); eGFR > 60.00
--- NOTE | 2024-07-04 20:34 | W.IMMPOSTOP ---
Addendum entered and electronically signed by Andres Mak MD 07/07/24 11:00:
#[id number]
Original Note:
Surgical Immed Post Op Note
-
Primary Surgeon: Aubree
Assisting Surgeon: Leydi MENDOZA
Pre-op Diagnosis: recurrent SBO
Post-op Diagnosis: recurrent SBO
Procedure Performed: Laparoscopy converted to laparotomy with extensive lysis of adhesions
Anesthesia Type: GETA + 0.25% Marcaine
Specimen / Cultures: none
Estimated Blood Loss: 50mL
Complications: none immediate
Operative Findings: Nest of dense distal small bowel adhesions to each other and to the pelvis with transition point identified within interloop SB adhesions. complete adhesiolysis from ligament of Treitz to ileocecal valve encompassed ~3hrs of
operative time. 2 serosal repairs - not complication, inherent to the nature of this operative procedure and unavoidable due to density of adhesions encountered. NO enterotomies. Seprafilm sheet placed in pelvis, btwn SB mesentery and bowel where
dense adhesions lysed, and under laparotomy incision.
patient's daughter ben ([phone]) updated post op via phone call.
[2024-07-04] MEDS: DILAUDID 0.25 MG IV ×2 (20:59→21:21)
--- NOTE | 2024-07-04 21:15 | PTCARENOTE ---
pt medicated for abd pain 08/09 at 2054, report to Flora Vail RN
[2024-07-04] MEDS: NORMOSOL-R 1000 IV (21:16)
[2024-07-04] MEDS: LOVENOX SC (21:53)
[2024-07-04] MEDS: TOPROL XL PO (21:53)
[2024-07-04] MEDS: CRESTOR PO (21:53)
--- NOTE | 2024-07-04 22:03 | PTCARENOTE ---
Received pt via bed from PACU. Pt drowsy but easily arousable to voice. PT AAOx3. Pt reports pain at tolerable level at this time. POX 100% on 2 LO2 NC. Oxygen removed, after some time pox rechecked, POX on RA 99%. Left nare NGT to in place to LIS
draining clear blood tinged drainage at this time. Hypo bowel, round abd. Midline abd incision open to air with surg glue in place, gauze dressing to superior incision due to leakage. 2 lap sites noted to right lower abd, open to air with surg glue
in place. Palpable peripheral pulses present. Right AC int infusing Normasol @110ml/hr as ordered. Call aden in reach. Will continue to monitor.
[2024-07-04] MEDS: LOPRESSOR 5 MG IV (23:29)
[2024-07-05 03:11] VITALS: BP 131/63
[2024-07-05] MEDS: DILAUDID 0.25 MG IV ×2 (03:13→07:58)
[2024-07-05] MEDS: NORMOSOL-R 1000 IV ×3 (05:13→23:30)
[2024-07-05] MEDS: LOPRESSOR 5 MG IV ×4 (05:14→23:30)
--- NOTE | 2024-07-05 06:04 | PTCARENOTE ---
Pt awake intermittently t/o the night. PRN pain medication administered as needed. Pt reports pain at tolerable level. Pt tolerating ice chips. IVF infusing as ordered. Vital signs stable. Will continue to monitor.
[2024-07-05 07:30] VITALS: BP 107/62
--- NOTE | 2024-07-05 07:31 | W.PN.GS2 ---
Today's Communication / Plan
-
`
Assessment / Plan
-
Assessment: 79 y/o female POD#1 s/p lap -> laparotomy with extensive adhesiolysis (complete) for recurrent pSBOs
AFVSS
overall looks well post op
Plan: multimodal pain control
antiemetics PRN
maintain NGT as expecting delayed GI recovery
-PICC line and start TPN
AM labs pending
cont IVFs pending TPN
protonix for GIp
resume lovenox this evening for VTEp
Subjective Data
-
Date of Service: July 05, 2024
pt seen and examined
reviewed operative procedure
post op pain controlled
no nausea
offers no additional concerns/complaints
Objective Data
-
Intake and Output
07/04/24 07/05/24 07/06/24
06:59 06:59 06:59
Intake Total 1160 / 1160 1130 / 1130
Output Total 1330 / 1330
Balance 1160 / 1160 -200 / -200
Intake:
Oral fluids 1160 / 1160
IV fluids (Total) 1100 / 1100
Amount instilled into GI Tube ( 30 / 30
Total)
[place] Sump 30 / 30
Output:
Gastrointestinal tube output ( 30 / 30
Total)
[place] Sump 30 / 30
Urine, [place] 1300 / 1300
Other:
Number of approximated MODERATE 3 1
amounts of urine
Vital Signs
Temp Pulse Resp BP Pulse Ox
98.2 F 86 18 131/63 97
07/05/24 03:11 07/05/24 05:14 07/05/24 03:11 07/05/24 05:14 07/05/24 03:11
Calcium 9.7 mg/dl (8.4-10.2) 07/04/24 09:13
Magnesium 2.0 mg/dl (1.6-2.3) 07/01/24 06:06
Total Bilirubin 1.1 mg/dl (0.2-1.3) 06/30/24 19:35
AST 28 U/L (14-36) 06/30/24 19:35
ALT 19 U/L (0-35) 06/30/24 19:35
Alkaline Phosphatase 47 U/L (38-126) 06/30/24 19:35
Total Protein 7.6 g/dl (6.3-8.2) 06/30/24 19:35
Albumin 5.1 g/dl (3.5-5.0) H 06/30/24 19:35
Physical Exam
-
NAD AAOx3
ABD: softly protuberant, TTP at incisions
lap sites with glue dressings, small amt bloody drainage at umbilical lap site
midline laparotomy incision with glue dressing, no drainage, no erythema
[2024-07-05] MEDS: PROTONIX IV 40 MG IV (07:56)
[2024-07-05] MEDS: ASPIRIN 300 MG RECTAL (07:58)
[2024-07-05 08:56] VITALS: BMI 24.4
--- NOTE | 2024-07-05 09:31 | W.PN.HOSP.TC ---
Today's Communication/Plan
-
.
Assessment / Plan
Assessment / Plan
Physical Exam
General: No Apparent Distress and Conversant
HEENT: PERRLA
Respiratory: Clear; No Wheezes
Cardiac: S1/S2 and Regular Rhythm
GI: Soft and mildly tender. Normal BS
Musculoskeletal: No Edema
Skin: Warm and Dry; No Rash
Neuro: AO x 3
Psych: Calm
Assessment:
# Recurrent SBO with extensive adhesions
s/p Laparoscopy converted to laparotomy with extensive lysis of adhesions by Dr Mak on 07/04/24. No complications reported
C/W Bowel rest. NPO. NG on suction.
IVF, PIC line and tPN
S/P Empiric ABx
Monitor vitals.
Appreciate surgery help
#Hx of CVA
- Held Plavix until safe to resume post op
d/w surgery, will resume aspirin rectally for now.
#Essential HTN
Changed to IV BB with Metoprolol
#GERD
- continue PPI
#Iodine allergy
- prn Benadryl/Claritin for post-contrast hives
DVT ppx: Lovenox
Code: Full
Total time spent to see the patient, examine the patient on the floor, review data and lab results, discuss treatment plan with patient, surgery team, nursing staff around 55 minutes.
Anticipated Discharge: > 48 hours
Subjective/Interval History
-
Date of Service: July 05, 2024
Less abdominal pain
concerned about aspirin and Plavix.
Objective Data
-
Labs:
Laboratory Results
07/05/24
07:28
WBC Pending
Hgb Pending
Hct Pending
Plt Count Pending
Sodium Pending
Potassium Pending
Chloride Pending
Carbon Dioxide Pending
BUN Pending
Creatinine Pending
Glucose Pending
Calcium Pending
Total Bilirubin Pending
AST Pending
ALT Pending
Alkaline Phosphatase Pending
Vital Signs:
Vital Signs
Temp Pulse Resp BP Pulse Ox
99.4 F 83 16 107/62 99
07/05/24 07:30 07/05/24 07:30 07/05/24 07:30 07/05/24 07:30 07/05/24 07:30
I&O
07/04/24 07/05/24 07/06/24
06:59 06:59 06:59
Intake Total 1160 / 1160 1130 / 1130
Output Total 1330 / 1330
Balance 1160 / 1160 -200 / -200
[2024-07-05] MEDS: DILAUDID 0.5 MG IV ×2 (10:30→14:23)
[2024-07-05 10:38] LABS: Hematocrit 34.1 % (37.0-47.0); Hemoglobin 12.1 g/dL (12.0-16.0); Mean Corp Hgb Conc. 35.5 g/dL (33.0-37.0); Mean Corpuscular Hgb 29.8 pg (27.0-31.0); Platelet Count 225 10^3/uL (130-400); Red Blood Cell Count 4.06 10^6/uL (4.20-5.40); Red Cell Dist. Width 12.3 % (11.5-14.5)
[2024-07-05 11:23] LABS: ALT (SGPT) 17 U/L (0-35); AST (SGOT) 32 U/L (14-36); Albumin 3.7 g/dl (3.5-5.0); Alkaline Phosphatase 30 U/L (38-126); Blood Urea Nitrogen 10 mg/dl (7-17); Calcium 8.3 mg/dl (8.4-10.2); Carbon Dioxide 21 mmol/L (22-30); Chloride 104 mmol/L (98-107); Estimated Creatinine Clearance 55 ml/min; Glucose 78 mg/dl (70-99); Magnesium 2.2 mg/dl (1.6-2.3); Phosphorus 3.9 mg/dl (2.5-4.5); Sodium 135 mmol/L (135-145); Total Bilirubin 0.7 mg/dl (0.2-1.3); Total Protein 5.8 g/dl (6.3-8.2); Triglycerides 90 mg/dl (10-149); eGFR > 60.00
[2024-07-05 11:30] VITALS: BP 124/53
--- NOTE | 2024-07-05 11:49 | CM ---
Reviewed the chart notes and spoke with the patient and her spouse at the bedside. Patient remains NPO with NGT in place. Per notes, plan is PICC line placement and TPN. CM continues to be available to patient/family and is monitoring medical
plan for needs at discharge.
Plan: Discharge to home when medically stable.
--- NOTE | 2024-07-05 14:04 | VATNOTE ---
PICC line ordered for TPN. TPN not ordered to start today, Will place PICC when TPN is ordered.
[2024-07-05 15:59] VITALS: BP 121/61
[2024-07-05] MEDS: LOVENOX 40 MG SC (17:24)
[2024-07-05 19:53] VITALS: BP 155/72
[2024-07-05] MEDS: OFIRMEV 100 IV (20:41)
[2024-07-05 23:30] VITALS: BP 140/57
[2024-07-06] MEDS: OFIRMEV 100 IV (03:10)
[2024-07-06 03:13] VITALS: BP 135/65
--- NOTE | 2024-07-06 03:17 | PTCARENOTE ---
Pt complaining of intermittent sharp abd pain. PRN Medication administered as ordered. Will continue to monitor.
[2024-07-06 05:42] LABS: Hematocrit 31.5 % (37.0-47.0); Hemoglobin 11.3 g/dL (12.0-16.0); Mean Corp Hgb Conc. 35.9 g/dL (33.0-37.0); Mean Corpuscular Hgb 30.9 pg (27.0-31.0); Mean Corpuscular Volume 86.1 fL (81.0-99.0); Mean Platelet Volume 9.9 fL (7.4-10.4); Platelet Count 187 10^3/uL (130-400); Red Blood Cell Count 3.66 10^6/uL (4.20-5.40); Red Cell Dist. Width 12.5 % (11.5-14.5); White Blood Cell Count 6.7 10^3/uL (4.8-10.8)
[2024-07-06] MEDS: LOPRESSOR 5 MG IV ×4 (05:55→23:15)
--- NOTE | 2024-07-06 06:07 | PTCARENOTE ---
Fletcher removed per MD order. Pt placed on T/A. pt reports pain at tolerable level at this time. IVF infusing as ordered. Will continue to monitor.
[2024-07-06 06:12] LABS: Blood Urea Nitrogen 8 mg/dl (7-17); Calcium 8.4 mg/dl (8.4-10.2); Carbon Dioxide 20 mmol/L (22-30); Chloride 106 mmol/L (98-107); Estimated Creatinine Clearance 65 ml/min; Glucose 71 mg/dl (70-99); Potassium 3.4 mmol/L (3.5-5.1); Sodium 136 mmol/L (135-145); eGFR > 60.00
--- NOTE | 2024-07-06 07:34 | W.PN.GS2 ---
Today's Communication / Plan
-
`
Assessment / Plan
-
Assessment: 79 y/o female POD#2 s/p lap -> laparotomy with extensive adhesiolysis (complete) for recurrent pSBOs
AFVSS
overall looks well post op
Plan: continue multimodal pain control
antiemetics PRN
maintain NGT as expecting delayed GI recovery
-PICC line and start TPN (discussed with VAT - will place today and TPN ordered)
cont IVFs pending TPN
protonix for GIp
resume lovenox this evening for VTEp
ASA okay, continue to hold plavix ~72hrs post op
Subjective Data
-
Date of Service: July 06, 2024
pt seen and examined
monahan removed this AM
post op pain adequately controlled
no nausea
some left sided sinus pressure with NGT in place
Objective Data
-
Intake and Output
07/05/24 07/06/24 07/07/24
06:59 06:59 06:59
Intake Total 1130 / 1130 1690 / 1690
Output Total 1330 / 1330 2650 / 2650
Balance -200 / -200 -960 / -960
Intake:
Oral fluids 110 / 110
IV fluids (Total) 1100 / 1100 1320 / 1320
IV piggybacks 200 / 200
Amount instilled into GI Tube ( 30 / 30 60 / 60
Total)
[place] Sump 30 / 30 60 / 60
Output:
Gastrointestinal tube output ( 30 / 30 500 / 500
Total)
[place] Sump 30 / 30 500 / 500
Urine, [place] 1300 / 1300 2150 / 2150
Other:
Number of approximated MODERATE 1
amounts of urine
Vital Signs
Temp Pulse Resp BP Pulse Ox
98.2 F 94 18 135/65 96
07/06/24 03:13 07/06/24 05:55 07/06/24 03:13 07/06/24 05:55 07/06/24 03:13
Lab Results
07/06/24 05:10
07/06/24 05:10
Calcium 8.4 mg/dl (8.4-10.2) 07/06/24 05:10
Phosphorus 3.9 mg/dl (2.5-4.5) 07/05/24 09:55
Magnesium 2.2 mg/dl (1.6-2.3) 07/05/24 09:55
Total Bilirubin 0.7 mg/dl (0.2-1.3) 07/05/24 09:55
AST 32 U/L (14-36) 07/05/24 09:55
ALT 17 U/L (0-35) 07/05/24 09:55
Alkaline Phosphatase 30 U/L (38-126) L 07/05/24 09:55
Total Protein 5.8 g/dl (6.3-8.2) L 07/05/24 09:55
Albumin 3.7 g/dl (3.5-5.0) 07/05/24 09:55
Physical Exam
-
NAD AAOx3
ABD: softly distended, mild tenderness at incisions and right sided
incisions with glue dressing and some localized ecchymosis
[2024-07-06 07:35] VITALS: BP 155/67
[2024-07-06] MEDS: PROTONIX IV 40 MG IV (08:34)
[2024-07-06] MEDS: ASPIRIN 300 MG RECTAL (08:34)
[2024-07-06] MEDS: NORMOSOL-R 1000 IV (08:35)
[2024-07-06] MEDS: ZOFRAN 4 MG IV (08:46)
--- NOTE | 2024-07-06 09:26 | W.PN.HOSP.TC ---
Today's Communication/Plan
-
replace K
Pic line
Use Toradol only for severe pain, not responding to Tylenol
Ambulate
Incentive spirometry
Monitor for retention after Fletcher
Assessment / Plan
Assessment / Plan
Physical Exam
General: No Apparent Distress and Conversant
HEENT: PERRLA
Respiratory: Clear; No Wheezes
Cardiac: S1/S2 and Regular Rhythm
GI: Soft and mildly tender. Normal BS
Musculoskeletal: No Edema
Skin: Warm and Dry; No Rash
Neuro: AO x 3
Psych: Calm
Assessment:
# Recurrent SBO with extensive adhesions
s/p Laparoscopy converted to laparotomy with extensive lysis of adhesions by Dr Mak on 07/04/24. No complications reported
C/W Bowel rest. NPO. NG on suction.
IVF, PIC line and tPN
S/P Empiric ABx
Monitor vitals.
Appreciate surgery help
#Hx of CVA
- Held Plavix until safe to resume post op
d/w surgery,ok to resume aspirin rectally for now.
# Hypokalemia, replace
#Essential HTN
Changed to IV BB with Metoprolol
#GERD
- continue PPI
#Iodine allergy
- prn Benadryl/Claritin for post-contrast hives
DVT ppx: Lovenox
Code: Full
Total time spent to see the patient, examine the patient on the floor, review data and lab results, discuss treatment plan with patient, surgery team, nursing staff around 55 minutes.
Anticipated Discharge: > 48 hours
Subjective/Interval History
-
Date of Service: July 06, 2024
Abdominal pain at times
Objective Data
-
Labs:
Laboratory Results
07/06/24
05:10
WBC 6.7
Hgb 11.3 L
Hct 31.5 L
Plt Count 187
Sodium 136
Potassium 3.4 L
Chloride 106
Carbon Dioxide 20 L
BUN 8
Creatinine 0.6
Glucose 71
Calcium 8.4
Vital Signs:
Vital Signs
Temp Pulse Resp BP Pulse Ox
98.1 F 87 16 155/67 95
07/06/24 07:35 07/06/24 07:35 07/06/24 07:35 07/06/24 07:35 07/06/24 07:35
I&O
07/05/24 07/06/24 07/07/24
06:59 06:59 06:59
Intake Total 1130 / 1130 1690 / 1690
Output Total 1330 / 1330 2650 / 2650
Balance -200 / -200 -960 / -960
--- NOTE | 2024-07-06 10:13 | CM ---
Reviewed the chart notes. Patient remains NPO with NGT in place. Fletcher removed. Per notes, plan is PICC line placement and TPN today. CM continues to be available to patient/family and is monitoring medical plan for needs at discharge.
Plan: Discharge to home when medically stable.
[2024-07-06 11:00] VITALS: BP 143/57
[2024-07-06] MEDS: TORADOL 15 MG IV ×2 (11:36→20:26)
[2024-07-06] MEDS: KCL 270 MEQ IV (11:36)
[2024-07-06 15:35] VITALS: BP 147/62
--- NOTE | 2024-07-06 16:01 | VATNOTE ---
PCN notified PICC is OK to use.
[2024-07-06] MEDS: LOVENOX 40 MG SC (17:55)
[2024-07-06 19:40] VITALS: BP 166/71
[2024-07-06] MEDS: Parenteral Nutrition, Central 2000 IV (21:23)
[2024-07-06] MEDS: NORMOSOL-R IV (22:31)
[2024-07-06 23:10] LABS: Glucose - Point of Care 169 mg/dl (70-99)
[2024-07-06 23:11] VITALS: BP 148/66
--- NOTE | 2024-07-06 23:25 | PTCARENOTE ---
pt started TPN stephanie. ordered AccuCheck q6hr. at 2300 blood [id number]. Informed RAIL SIGNAL DESIGNER Sean.- to call and get coverage when blood sugar is >300.
[2024-07-07 03:40] VITALS: BP 148/63
[2024-07-07] MEDS: NORMOSOL-R IV (03:48)
[2024-07-07 06:00] VITALS: BMI 23.4
[2024-07-07] MEDS: LOPRESSOR 5 MG IV ×4 (06:05→23:58)
[2024-07-07] MEDS: TORADOL 15 MG IV ×2 (06:06→20:41)
[2024-07-07 06:10] LABS: Blood Urea Nitrogen 10 mg/dl (7-17); Calcium 8.5 mg/dl (8.4-10.2); Carbon Dioxide 28 mmol/L (22-30); Chloride 104 mmol/L (98-107); Estimated Creatinine Clearance 65 ml/min; Glucose 246 mg/dl (70-99); Magnesium 2.1 mg/dl (1.6-2.3); Phosphorus 1.2 mg/dl (2.5-4.5); Potassium 3.3 mmol/L (3.5-5.1); Sodium 136 mmol/L (135-145); eGFR > 60.00
[2024-07-07 06:13] LABS: Glucose - Point of Care 260 mg/dl (70-99)
[2024-07-07] MEDS: CHLORASEPTIC/SORE THROAT SPRAY 1 SPRAY PO (06:39)
[2024-07-07 07:30] VITALS: BP 141/67
[2024-07-07] MEDS: PROTONIX IV 40 MG IV (07:48)
[2024-07-07] MEDS: ASPIRIN 300 MG RECTAL (07:48)
[2024-07-07] MEDS: NSS (PRESERVATIVE FREE) 10 ML IV (07:48)
--- NOTE | 2024-07-07 08:26 | W.PN.GS2 ---
Today's Communication / Plan
-
`
Assessment / Plan
-
Assessment: 79 y/o female POD#3 s/p lap -> laparotomy with extensive adhesiolysis (complete) for recurrent pSBOs
AFVSS
Early signs of returning GI function
hypophosphatemia, hypokalemia
Plan: continue multimodal pain control
antiemetics PRN
maintain NGT as expecting delayed GI recovery -hopeful will remove NG tube tomorrow a.m.
K-Phos rider ordered
TPN renewed and increased K-Phos 30 mEq
Start sliding scale insulin -low-dose
protonix for GIp
resume lovenox this evening for VTEp
ASA okay, continue to hold plavix ~72hrs post op
Subjective Data
-
Date of Service: July 07, 2024
Patient seen and examined.
Overall she states she is feeling better postoperatively.
Managing NG tube with sore throat and some discomfort.
Feels as though she has passed a little bit of flatus. No nausea.
Postop pain controlled
Objective Data
-
Intake and Output
07/06/24 07/07/24 07/08/24
06:59 06:59 06:59
Intake Total 1690 / 1690 1100 / 1100
Output Total 2650 / 2650 3425 / 3425
Balance -960 / -960 -2325 / -2325
Intake:
Oral fluids 110 / 110 100 / 100
IV fluids (Total) 1320 / 1320 100 / 100
IV piggybacks 200 / 200
TPN/PPN 800 / 800
Amount instilled into GI Tube ( 60 / 60 100 / 100
Total)
[place] Sump 60 / 60 100 / 100
Output:
Gastrointestinal tube output ( 500 / 500 350 / 350
Total)
[place] Sump 500 / 500 350 / 350
Urine, Fletcher 2150 / 2150
Urine, Voided 3075 / 3075
Other:
Number of approximated MODERATE 3
amounts of urine
Vital Signs
Temp Pulse Resp BP Pulse Ox
98.9 F 83 16 141/67 96
07/07/24 07:30 07/07/24 07:30 07/07/24 07:30 07/07/24 07:30 07/07/24 07:30
Lab Results
07/06/24 05:10
07/07/24 05:23
Calcium 8.5 mg/dl (8.4-10.2) 07/07/24 05:23
Phosphorus 1.2 mg/dl (2.5-4.5) L 07/07/24 05:23
Magnesium 2.1 mg/dl (1.6-2.3) 07/07/24 05:23
Total Bilirubin 0.7 mg/dl (0.2-1.3) 07/05/24 09:55
AST 32 U/L (14-36) 07/05/24 09:55
ALT 17 U/L (0-35) 07/05/24 09:55
Alkaline Phosphatase 30 U/L (38-126) L 07/05/24 09:55
Total Protein 5.8 g/dl (6.3-8.2) L 07/05/24 09:55
Albumin 3.7 g/dl (3.5-5.0) 07/05/24 09:55
Physical Exam
-
NAD AAOx3
ABD: Still a bit distended and tympanitic. Mild tenderness on palpation predominantly lower abdomen and at incision sites.
Incisions with glue dressings. No drainage. Light ecchymosis in areas but no hematomas. No seromas.
[2024-07-07] MEDS: POTASSIUM PHOSPHATE 259.0909 MEQ IV (08:39)
--- NOTE | 2024-07-07 09:16 | W.PN.HOSP.TC ---
Today's Communication/Plan
-
Adjust TPN
Treat low Phos and k
Assessment / Plan
Assessment / Plan
Physical Exam
General: No Apparent Distress and Conversant
HEENT: PERRLA. NG tube
Respiratory: Clear; No Wheezes
Cardiac: S1/S2 and Regular Rhythm
GI: Soft and mildly tender. Clean suture ( mid lower abdomen). + BS. Musculoskeletal: No Edema
Skin: Warm and Dry; No Rash
Neuro: AO x 3
Psych: Calm
Assessment:
# Recurrent SBO with extensive adhesions
s/p Laparoscopy converted to laparotomy with extensive lysis of adhesions by Dr Mak on 07/04/24. No complications reported
C/W Bowel rest. NPO. NG on suction.
IVF, PIC line and TPN
She is passing gas
S/P Empiric ABx
Monitor vitals.
Good BS today
Appreciate surgery help
# Hypophosphatemia
replace
# Hypokalemia
replace
# Hyperglycemia, induced by TPN
start ISS
#Hx of CVA
- Held Plavix until safe to resume post op
d/w surgery,ok to resume aspirin rectally for now.
# Hypokalemia, replace
#Essential HTN
Changed to IV BB with Metoprolol
#GERD
- continue PPI
#Iodine allergy
- prn Benadryl/Claritin for post-contrast hives
DVT ppx: Lovenox
Code: Full
Total time spent to see the patient, examine the patient on the floor, review data and lab results, discuss treatment plan with patient, surgery team, nursing staff around 57 minutes.
Anticipated Discharge: > 48 hours
Subjective/Interval History
-
Date of Service: July 07, 2024
No chest pain
No sob
Objective Data
-
Labs:
Laboratory Results
07/07/24
05:23
Sodium 136
Potassium 3.3 L
Chloride 104
Carbon Dioxide 28
BUN 10
Creatinine 0.5 L
Glucose 246 H
Calcium 8.5
Vital Signs:
Vital Signs
Temp Pulse Resp BP Pulse Ox
98.9 F 83 16 141/67 96
07/07/24 07:30 07/07/24 07:30 07/07/24 07:30 07/07/24 07:30 07/07/24 07:30
I&O
07/06/24 07/07/24 07/08/24
06:59 06:59 06:59
Intake Total 1690 / 1690 1100 / 1100
Output Total 2650 / 2650 3425 / 3425
Balance -960 / -960 -2325 / -2325
--- NOTE | 2024-07-07 11:02 | CM ---
Reviewed the chart notes and spoke with the patient at the bedside. Per notes, NGT may be removed tomorrow. TPN started yesterday. Patient oob to chair. CM continues to be available to patient/family and is monitoring medical plan for needs at
discharge.
Plan: Discharge to home when medically stable. No anticipated needs identified at this time.
[2024-07-07 11:15] VITALS: BP 146/70
[2024-07-07 11:41] LABS: Glucose - Point of Care 260 mg/dl (70-99)
[2024-07-07] MEDS: NOVOLOG FLEXPEN-LOW RESISTANCE 3 UNITS SC (11:55)
[2024-07-07] MEDS: ANESTHETIC LOZENGE 1 LOZENGE PO ×3 (11:55→20:56)
--- NOTE | 2024-07-07 13:19 | PN.CDI ---
Addendum entered and electronically signed by Bruno Addison MD 07/07/24 13:35:
Acute blood loss anemia
Original Note:
CDI
- -
CDI:
Physician Documentation Request
Admit Date: 07/01/24 02:14
Dear Doctor Cyn,
Please review the following and provide your response in the progress notes.
Clinical Indicators:
07/04 Procedure Performed:
#Laparoscopy converted to laparotomy with extensive lysis of adhesions
#Estimated Blood Loss: 50mL
Laboratory Tests
06/30/24 07/01/24 07/02/24
19:35 06:06 07:05
Hgb 14.1 12.3 11.6 L
Hct 40.0 35.4 L 33.8 L
07/04/24 07/05/24 07/06/24
09:13 09:55 05:10
Hgb 13.4 12.1 11.3 L
Hct 38.4 34.1 L 31.5 L
Based on the above, please clarify, the following is the most likely condition/diagnosis evaluated, monitored and/or treated?
Acute blood loss anemia
Abnormal lab value, clinically insignificant
Other(please specify)
Use of terms such as suspected, likely, concern for, or probable (associated with a specific diagnosis that is being evaluated, monitored, or treated as if it exists) are acceptable and can be coded in the inpatient setting, when documented at the
time of discharge.
Thank you,
Edilia Perdomo
CDI Specialist
Please use your independent medical judgment in providing your response.
[2024-07-07 15:40] VITALS: BP 161/81
[2024-07-07] MEDS: LOVENOX 40 MG SC (17:17)
[2024-07-07 17:55] LABS: Glucose - Point of Care 211 mg/dl (70-99)
[2024-07-07] MEDS: NOVOLOG FLEXPEN-LOW RESISTANCE 2 UNITS SC ×2 (18:55→23:58)
[2024-07-07 19:23] VITALS: BP 165/78
[2024-07-07] MEDS: Parenteral Nutrition, Central 2000 IV (20:35)
[2024-07-07] MEDS: ZOFRAN 4 MG IV (20:41)
[2024-07-07 22:55] VITALS: BP 143/66
[2024-07-07 23:57] LABS: Glucose - Point of Care 201 mg/dl (70-99)
[2024-07-08] MEDS: ANESTHETIC LOZENGE 1 LOZENGE PO ×4 (02:26→22:41)
--- NOTE | 2024-07-08 02:35 | PTCARENOTE ---
Reported handed off to OVIDIO Chahal to 2S
--- NOTE | 2024-07-08 02:50 | PTCARENOTE ---
Pt transferred 2S room 2119
--- NOTE | 2024-07-08 03:30 | PTCARENOTE ---
Pt transfer from at 03:00. Pt has an NG tube at low intermittent suction, She has a double lumen R PICC line and is currently receiving TPN @83mL/hr. Pt on 07/04 had a Exploratory Abdominal surgery with extensive lysis of adhesions Pt is
comfortable, her bed is in a low position with her call light in reach.
[2024-07-08 04:14] LABS: Hematocrit 29.7 % (37.0-47.0); Hemoglobin 10.7 g/dL (12.0-16.0); Mean Corpuscular Hgb 30.2 pg (27.0-31.0); Mean Corpuscular Volume 83.9 fL (81.0-99.0); Mean Platelet Volume 9.8 fL (7.4-10.4); Platelet Count 212 10^3/uL (130-400); Red Blood Cell Count 3.54 10^6/uL (4.20-5.40); Red Cell Dist. Width 12.5 % (11.5-14.5); White Blood Cell Count 7.5 10^3/uL (4.8-10.8)
[2024-07-08 04:35] LABS: Calcium 8.8 mg/dl (8.4-10.2); Carbon Dioxide 28 mmol/L (22-30); Chloride 105 mmol/L (98-107); Estimated Creatinine Clearance 65 ml/min; Glucose 177 mg/dl (70-99); Magnesium 2.1 mg/dl (1.6-2.3); Phosphorus 2.6 mg/dl (2.5-4.5); Potassium 3.3 mmol/L (3.5-5.1); Sodium 138 mmol/L (135-145); eGFR > 60.00
[2024-07-08 04:45] LABS: Blood Urea Nitrogen 13 mg/dl (7-17)
[2024-07-08] MEDS: LOPRESSOR 5 MG IV ×3 (05:07→18:09)
[2024-07-08] MEDS: NOVOLOG FLEXPEN-LOW RESISTANCE 300 UNITS SC (05:33)
[2024-07-08 05:40] LABS: Glucose - Point of Care 182 mg/dl (70-99)
[2024-07-08] MEDS: TORADOL 15 MG IV (05:48)
[2024-07-08 07:14] VITALS: BP 161/74
[2024-07-08] MEDS: PROTONIX IV 40 MG IV (08:14)
[2024-07-08] MEDS: ASPIRIN 300 MG RECTAL (08:14)
[2024-07-08] MEDS: NSS (PRESERVATIVE FREE) 10 ML IV (08:15)
--- NOTE | 2024-07-08 08:44 | W.PN.GS2 ---
Today's Communication / Plan
-
-- NGT clamp trial
-- TPN renewed with K increased
Assessment / Plan
-
Assessment: 79 y/o female POD#4 s/p lap -> laparotomy with extensive adhesiolysis (complete) for recurrent pSBOs
AFVSS
Early signs of returning GI function
hypophosphatemia, hypokalemia
Discussed NGT removal with patient. Noted slight increase in NGT outputs likely related to oral intake around tube. Patient expresses some concern that NGT might have to be replaced. Patient preference for clamp trial throughout the day today.
Tender plans for removal tomorrow if no issues with tube clamped and continues to show slow improvement.
Plan: Continue multimodal pain control
Antiemetics PRN
NGT clamp throughout the day
K-Cl replacement ordered
TPN renewed and increased K-Phos 30 mEq
Start sliding scale insulin -low-dose
Protonix for GI
Lovenox for VTEp
ASA okay, continue to hold Plavix
Subjective Data
-
Date of Service: July 08, 2024
Complaints of sore throat and discomfort from NGT. Mild abdominal pain, stable. No nausea or vomiting. Does report eating some ice chips. Reports passing some flatus, no BM. Minimal ambulation. Voiding.
Objective Data
-
Intake and Output
07/07/24 07/08/24 07/09/24
06:59 06:59 06:59
Intake Total 1100 / 1100 2777 / 2777
Output Total 3425 / 3425 2125 / 2125
Balance -2325 / -2325 652 / 652
Intake:
Oral fluids 100 / 100 240 / 240
IV fluids (Total) 100 / 100
TPN/PPN 800 / 800 2357 / 2357
Amount instilled into GI Tube ( 100 / 100 180 / 180
Total)
[place] Sump 100 / 100 180 / 180
Output:
Gastrointestinal tube output ( 350 / 350 925 / 925
Total)
[place] Sump 350 / 350 925 / 925
Urine, Voided 3075 / 3075 1200 / 1200
Other:
Number of approximated MODERATE 3 2
amounts of urine
Vital Signs
Temp Pulse Resp BP Pulse Ox
98.8 F 93 16 161/74 98
07/08/24 07:14 07/08/24 07:14 07/08/24 07:14 07/08/24 07:14 07/08/24 07:14
Lab Results
07/08/24 04:05
07/08/24 04:05
Calcium 8.8 mg/dl (8.4-10.2) 07/08/24 04:05
Phosphorus 2.6 mg/dl (2.5-4.5) 07/08/24 04:05
Magnesium 2.1 mg/dl (1.6-2.3) 07/08/24 04:05
Total Bilirubin 0.7 mg/dl (0.2-1.3) 07/05/24 09:55
AST 32 U/L (14-36) 07/05/24 09:55
ALT 17 U/L (0-35) 07/05/24 09:55
Alkaline Phosphatase 30 U/L (38-126) L 07/05/24 09:55
Total Protein 5.8 g/dl (6.3-8.2) L 07/05/24 09:55
Albumin 3.7 g/dl (3.5-5.0) 07/05/24 09:55
Physical Exam
-
Gen: NAD
HEENT: gastric outputs
Abd: soft, mild tenderness, mild distension, non-peritoneal, incisions c/d/i - no erythema, ecchymosis or drainage
[2024-07-08 11:34] LABS: Glucose - Point of Care 198 mg/dl (70-99)
[2024-07-08 11:37] VITALS: BP 150/85
[2024-07-08] MEDS: NOVOLOG FLEXPEN-LOW RESISTANCE 1 UNITS SC (12:22)
[2024-07-08] MEDS: OFIRMEV 100 IV ×2 (14:56→22:30)
--- NOTE | 2024-07-08 15:00 | W.PN.HOSP.TC ---
Today's Communication/Plan
-
.
Assessment / Plan
Assessment / Plan
Physical Exam
General: No Apparent Distress and Conversant
HEENT: PERRLA. NG tube
Respiratory: Clear; No Wheezes
Cardiac: S1/S2 and Regular Rhythm
GI: Soft and mildly tender. Clean suture ( mid lower abdomen). + BS. Musculoskeletal: No Edema
Skin: Warm and Dry; No Rash
Neuro: AO x 3
Psych: Calm
Assessment:
# Recurrent SBO with extensive adhesions
s/p Laparoscopy converted to laparotomy with extensive lysis of adhesions by Dr Mak on 07/04/24. No complications reported
C/W Bowel rest. NPO. NG on suction.
IVF, PIC line and TPN
She is not passing gas as much
S/P Empiric ABx
Monitor vitals.
Good BS today
Appreciate surgery help
# Hypophosphatemia
replace
# Hypokalemia
replace
# Hyperglycemia, induced by TPN
start ISS
#Hx of CVA
- Held Plavix until safe to resume post op
d/w surgery,ok to resume aspirin rectally for now.
# Hypokalemia, replace
#Essential HTN
Changed to IV BB with Metoprolol
#GERD
- continue PPI
#Iodine allergy
- prn Benadryl/Claritin for post-contrast hives
DVT ppx: Lovenox
Code: Full
Total time spent to see the patient, examine the patient on the floor, review data and lab results, discuss treatment plan with patient, surgery team, nursing staff around 57 minutes.
Anticipated Discharge: > 48 hours
Subjective/Interval History
-
Date of Service: July 08, 2024
Seen earlier then later
No chest pain
Not passing gas
Objective Data
-
Labs:
Laboratory Results
07/08/24
04:05
WBC 7.5
Hgb 10.7 L
Hct 29.7 L
Plt Count 212
Sodium 138
Potassium 3.3 L
Chloride 105
Carbon Dioxide 28
BUN 13
Creatinine 0.4 L
Glucose 177 H
Calcium 8.8
Vital Signs:
Vital Signs
Temp Pulse Resp BP Pulse Ox
98.2 F 108 16 150/85 100
07/08/24 11:37 07/08/24 11:37 07/08/24 11:37 07/08/24 11:37 07/08/24 11:37
I&O
07/07/24 07/08/24 07/09/24
06:59 06:59 06:59
Intake Total 1100 / 1100 2777 / 2777
Output Total 3425 / 3425 2125 / 2125
Balance -2325 / -2325 652 / 652
--- NOTE | 2024-07-08 15:26 | W.PN.SURGUPD ---
Surgical Update
Surgical Update
S/B: Awaiting return of bowel function post op. NGT clamped this am. Patient oob to chair and ambulating in hallways.
A/R: No flatus today although she did have some initially. Some belching and mild nausea with tube clamped earlier this afternoon. Tube was returned to suction. Flushed and patent.
[2024-07-08 15:47] VITALS: BP 153/75
[2024-07-08] MEDS: LOVENOX 40 MG SC (18:09)
[2024-07-08] MEDS: NOVOLOG FLEXPEN-LOW RESISTANCE 2 UNITS SC (18:10)
[2024-07-08 18:11] LABS: Glucose - Point of Care 238 mg/dl (70-99)
--- NOTE | 2024-07-08 18:55 | CM ---
met with patient at bedside.patient is sp exp lap/anshu,is till with ngt to suction,ivf,tpn.tried to cap; ntg today but this was not successful.plan to try to remove ngt tomorrow.plan home with no needs brooke prieot.
[2024-07-08 19:05] VITALS: BP 155/75
[2024-07-08] MEDS: Parenteral Nutrition, Central 2000 IV (21:03)
[2024-07-08] MEDS: ZOFRAN 4 MG IV (21:20)
[2024-07-09] VITALS (8 sets, daily range): BP systolic 139–161; BP diastolic 68–91; BMI 24.0
[2024-07-09] MEDS: LOPRESSOR 5 MG IV ×5 (00:21→23:26)
[2024-07-09] MEDS: NOVOLOG FLEXPEN-LOW RESISTANCE 2 UNITS SC (00:25)
[2024-07-09 00:32] LABS: Glucose - Point of Care 223 mg/dl (70-99)
--- NOTE | 2024-07-09 02:29 | PTCARENOTE ---
pt nausea and vomiting small amount of clear mucous @ this time. NG patent.
[2024-07-09 06:01] LABS: Blood Urea Nitrogen 16 mg/dl (7-17); Calcium 9.1 mg/dl (8.4-10.2); Carbon Dioxide 26 mmol/L (22-30); Chloride 104 mmol/L (98-107); Estimated Creatinine Clearance 65 ml/min; Glucose 193 mg/dl (70-99); Magnesium 2.1 mg/dl (1.6-2.3); Phosphorus 3.2 mg/dl (2.5-4.5); Potassium 3.9 mmol/L (3.5-5.1); Sodium 136 mmol/L (135-145); eGFR > 60.00
[2024-07-09 06:02] LABS: Glucose - Point of Care 189 mg/dl (70-99)
[2024-07-09] MEDS: NOVOLOG FLEXPEN-LOW RESISTANCE 1 UNITS SC (06:04)
[2024-07-09] MEDS: NSS (PRESERVATIVE FREE) 10 ML IV (08:46)
[2024-07-09] MEDS: ASPIRIN 300 MG RECTAL (08:46)
[2024-07-09] MEDS: PROTONIX IV 40 MG IV (08:46)
--- NOTE | 2024-07-09 09:28 | PTCARENOTE ---
Around 0850, when attempting to flush NGT with 30 cc of water, patient began to cough and gag. Flushing immediately stopped. None of the 30 cc reached patient. REED Oscar made aware and x ray ordered. Results pending. Will conitnue to monitor
patient.
--- NOTE | 2024-07-09 09:41 | W.PN.HOSP.TC ---
Today's Communication/Plan
-
Add Ativan to help with pain control
c/w TPN
f/w surgery, high out put NG, repositioning of NG
Assessment / Plan
Assessment / Plan
Physical Exam
General: No Apparent Distress and Conversant
HEENT: PERRLA. NG tube
Respiratory: Clear; No Wheezes
Cardiac: S1/S2 and Regular Rhythm
GI: Soft and mildly tender. Clean suture ( mid lower abdomen). + BS. Musculoskeletal: No Edema
Skin: Warm and Dry; No Rash
Neuro: AO x 3
Psych: Calm
Assessment:
# Recurrent SBO with extensive adhesions
s/p Laparoscopy converted to laparotomy with extensive lysis of adhesions by Dr Mak on 07/04/24. No complications reported
C/W Bowel rest. NPO. NG on suction. Seems to c/w high output
IVF, PIC line and TPN
She is not passing gas as much
S/P Empiric ABx
Monitor vitals.
Appreciate surgery help
# Hypophosphatemia
replace
# Hypokalemia
replace
# Hyperglycemia, induced by TPN
start ISS
#Hx of CVA
- Held Plavix until safe to resume post op
d/w surgery,ok to resume aspirin rectally for now.
# Hypokalemia, replaced
#Essential HTN
Changed to IV BB with Metoprolol
#GERD
- continue PPI
#Iodine allergy
- prn Benadryl/Claritin for post-contrast hives
DVT ppx: Lovenox
Code: Full
Total time spent to see the patient, examine the patient on the floor, review data and lab results, discuss treatment plan with patient, surgery team, nursing staff around 57 minutes.
Anticipated Discharge: > 48 hours
Subjective/Interval History
-
Date of Service: July 09, 2024
Reports problems with regurgitation of secretions over night
Not passing gas
Nursing staff, high NG output
Objective Data
-
Labs:
Laboratory Results
07/09/24
05:01
Sodium 136
Potassium 3.9
Chloride 104
Carbon Dioxide 26
BUN 16
Creatinine 0.4 L
Glucose 193 H
Calcium 9.1
Vital Signs:
Vital Signs
Temp Pulse Resp BP Pulse Ox
99.3 F 104 16 155/86 97
07/09/24 07:57 07/09/24 07:57 07/09/24 07:57 07/09/24 07:57 07/09/24 07:57
I&O
07/08/24 07/09/24 07/10/24
06:59 06:59 06:59
Intake Total 2777 / 2777 2502 / 2502
Output Total 2125 / 2125 900 / 900
Balance 652 / 652 1602 / 1602
[2024-07-09] MEDS: OFIRMEV 100 IV ×3 (10:25→23:20)
[2024-07-09] MEDS: ATIVAN 0.5 MG IV (11:17)
[2024-07-09] MEDS: NSS (PRESERVATIVE FREE) 0.25 ML IV (11:18)
[2024-07-09 11:35] LABS: Glucose - Point of Care 239 mg/dl (70-99)
[2024-07-09] MEDS: NOVOLOG FLEXPEN-MODERATE RESISTANCE 3 UNITS SC ×2 (11:39→17:10)
--- NOTE | 2024-07-09 12:12 | W.PN.GS2 ---
Today's Communication / Plan
-
NGT/NPO/TPN
Assessment / Plan
-
Assessment: 79 y/o female POD#5 s/p lap -> laparotomy with extensive adhesiolysis (complete) for recurrent pSBOs
AFVSS
Clamp trial yesterday with n/v burping and ngt returned to suction
Nausea overnight with dry heaving. NGT dislodged with xray confirming this. Advanced back in to 60cm at bedside with repeat XR confirming correct position in stomach
Await more ROBF prior to removing NGT
Lytes stable
Plan: Continue multimodal pain control
Antiemetics PRN
Continue NGT to suction
TPN renewed (2L volume), will follow labs closely
Increased sliding scale insulin -mod-dose at recommendation of pharmacist
Protonix for GI ppx
Lovenox for VTEp
ASA okay, continue to hold Plavix
Subjective Data
-
Date of Service: July 09, 2024
Patient seen and examined at bedside with Dr. Goddard. Nausea with dry heaves overnight, NGT appears further out then yesterday and patient with gagging during attempted flush. Not passing much flatus.
Objective Data
-
Intake and Output
07/08/24 07/09/24 07/10/24
06:59 06:59 06:59
Intake Total 2777 / 2777 2502 / 2502
Output Total 2125 / 2125 900 / 900
Balance 652 / 652 1602 / 1602
Intake:
Oral fluids 240 / 240 360 / 360
TPN/PPN 2357 / 2357 1991 / 1991
Amount instilled into GI Tube ( 180 / 180 150 / 150
Total)
[place] Sump 180 / 180 150 / 150
Output:
Gastrointestinal tube output ( 925 / 925 900 / 900
Total)
[place] Sump 925 / 925 900 / 900
Urine, Voided 1200 / 1200
Other:
Number of approximated MODERATE 2 2
amounts of urine
Vital Signs
Temp Pulse Resp BP Pulse Ox
99.3 F 87 16 143/70 97
07/09/24 07:57 07/09/24 11:38 07/09/24 07:57 07/09/24 11:38 07/09/24 07:57
Lab Results
07/08/24 04:05
07/09/24 05:01
Calcium 9.1 mg/dl (8.4-10.2) 07/09/24 05:01
Phosphorus 3.2 mg/dl (2.5-4.5) 07/09/24 05:01
Magnesium 2.1 mg/dl (1.6-2.3) 07/09/24 05:01
Total Bilirubin 0.7 mg/dl (0.2-1.3) 07/05/24 09:55
AST 32 U/L (14-36) 07/05/24 09:55
ALT 17 U/L (0-35) 07/05/24 09:55
Alkaline Phosphatase 30 U/L (38-126) L 07/05/24 09:55
Total Protein 5.8 g/dl (6.3-8.2) L 07/05/24 09:55
Albumin 3.7 g/dl (3.5-5.0) 07/05/24 09:55
Physical Exam
-
Gen: NAD
HEENT: NGT with dark brown outputs
Abd: soft, mild tenderness, mild distension, non-peritoneal, incisions c/d/i - no erythema, ecchymosis or drainage
[2024-07-09 16:54] LABS: Glucose - Point of Care 206 mg/dl (70-99)
[2024-07-09] MEDS: LOVENOX 40 MG SC (17:10)
[2024-07-09] MEDS: ERYTHROMYCIN 0.5% OPHTHALMIC OINTMENT 1 APPLIC LEFT EYE ×2 (18:33→20:52)
[2024-07-09] MEDS: Parenteral Nutrition, Central 2000 IV (20:48)
[2024-07-09] MEDS: ANESTHETIC LOZENGE 1 LOZENGE PO (20:50)
[2024-07-09 21:50] LABS: Glucose - Point of Care 197 mg/dl (70-99)
[2024-07-09] MEDS: NOVOLOG FLEXPEN-MODERATE RESISTANCE 1 UNITS SC (23:29)
[2024-07-09 23:41] LABS: Glucose - Point of Care 193 mg/dl (70-99)
[2024-07-10 03:26] VITALS: BP 150/73
--- NOTE | 2024-07-10 05:26 | PTCARENOTE ---
Pt with no n/v throughout shift, NGT remain at 60 cm taped to left nare. Pt had small BM @0400.
[2024-07-10] MEDS: NOVOLOG FLEXPEN-MODERATE RESISTANCE 1 UNITS SC ×2 (05:42→18:12)
[2024-07-10] MEDS: LOPRESSOR 5 MG IV ×3 (05:49→18:11)
[2024-07-10 05:56] LABS: Glucose - Point of Care 172 mg/dl (70-99)
[2024-07-10 06:00] VITALS: BMI 23.4
[2024-07-10 06:14] LABS: Hematocrit 28.3 % (37.0-47.0); Hemoglobin 9.9 g/dL (12.0-16.0); Mean Corpuscular Hgb 29.7 pg (27.0-31.0); Platelet Count 237 10^3/uL (130-400); Red Blood Cell Count 3.33 10^6/uL (4.20-5.40); Red Cell Dist. Width 12.6 % (11.5-14.5); White Blood Cell Count 9.1 10^3/uL (4.8-10.8)
[2024-07-10 06:40] LABS: Blood Urea Nitrogen 16 mg/dl (7-17); Calcium 8.9 mg/dl (8.4-10.2); Carbon Dioxide 27 mmol/L (22-30); Chloride 104 mmol/L (98-107); Estimated Creatinine Clearance 65 ml/min; Glucose 174 mg/dl (70-99); Magnesium 2.2 mg/dl (1.6-2.3); Phosphorus 3.2 mg/dl (2.5-4.5); Potassium 3.9 mmol/L (3.5-5.1); Sodium 138 mmol/L (135-145); eGFR > 60.00
[2024-07-10 08:12] VITALS: BP 157/75
[2024-07-10] MEDS: NSS (PRESERVATIVE FREE) 10 ML IV ×2 (08:23→19:34)
[2024-07-10] MEDS: ERYTHROMYCIN 0.5% OPHTHALMIC OINTMENT 1 APPLIC LEFT EYE ×4 (08:23→21:51)
[2024-07-10] MEDS: PROTONIX IV 40 MG IV ×2 (08:23→19:34)
[2024-07-10] MEDS: OFIRMEV 100 IV ×2 (08:24→14:40)
[2024-07-10] MEDS: ASPIRIN 300 MG RECTAL (08:24)
--- NOTE | 2024-07-10 11:29 | W.PN.GS2 ---
Today's Communication / Plan
-
NGT clamp trial
Continue TPN
Assessment / Plan
-
Assessment: 79 y/o female POD#6 s/p lap -> laparotomy with extensive adhesiolysis (complete) for recurrent pSBOs
AFVSS
NGT with low outputs over 24h
+flatus/stool
Acute anemia noted, suspect hemodilutional and expected losses. Some blood tinged gastric outputs from localized irritation from NGT
Plan: Continue multimodal pain control
Antiemetics PRN
NGT clamp trial
TPN renewed (2L volume), will follow labs
C/W sliding scale insulin while on TPN -mod-dose at recommendation of pharmacist
Protonix for GI ppx, increased to BID given blood tinged NGT outputs
Lovenox for VTEp
ASA okay, continue to hold Plavix
Subjective Data
-
Date of Service: July 10, 2024
Patient seen and examined at bedside with Dr. Goddard. Passing flatus with a small BM last night. Denies n/v. Pain improving.
Objective Data
-
Intake and Output
07/09/24 07/10/24 07/11/24
06:59 06:59 06:59
Intake Total 2502 / 2502 1346 / 1346
Output Total 900 / 900 850 / 850
Balance 1602 / 1602 496 / 496
Intake:
Oral fluids 360 / 360
IV piggybacks 200 / 200
TPN/PPN 1991 / 1991 996 / 996
Amount instilled into GI Tube ( 150 / 150 150 / 150
Total)
[place] Sump 150 / 150 150 / 150
Output:
Gastrointestinal tube output ( 900 / 900 450 / 450
Total)
[place] Sump 900 / 900 450 / 450
Urine, Voided 400 / 400
Other:
Number of approximated MODERATE 2 2
amounts of urine
Vital Signs
Temp Pulse Resp BP Pulse Ox
99.3 F 100 16 157/75 97
07/10/24 08:12 07/10/24 08:12 07/10/24 08:12 07/10/24 08:12 07/10/24 08:12
Lab Results
07/10/24 05:26
07/10/24 05:26
Calcium 8.9 mg/dl (8.4-10.2) 07/10/24 05:26
Phosphorus 3.2 mg/dl (2.5-4.5) 07/10/24 05:26
Magnesium 2.2 mg/dl (1.6-2.3) 07/10/24 05:26
Total Bilirubin 0.7 mg/dl (0.2-1.3) 07/05/24 09:55
AST 32 U/L (14-36) 07/05/24 09:55
ALT 17 U/L (0-35) 07/05/24 09:55
Alkaline Phosphatase 30 U/L (38-126) L 07/05/24 09:55
Total Protein 5.8 g/dl (6.3-8.2) L 07/05/24 09:55
Albumin 3.7 g/dl (3.5-5.0) 07/05/24 09:55
Physical Exam
-
Gen: NAD
HEENT: NGT with dark brown/blood tinged outputs
Abd: soft, mild tenderness, mild distension, non-peritoneal, incisions c/d/i - no erythema, ecchymosis or drainage
[2024-07-10 11:42] VITALS: BP 145/79
[2024-07-10] MEDS: ANESTHETIC LOZENGE 1 LOZENGE PO (11:43)
--- NOTE | 2024-07-10 11:46 | W.PN.HOSP.TC ---
Today's Communication/Plan
-
Agree with NGT clamp trial
Add PRN hydralazine
Use PRN Tylenol/ Ativan for pain, anxiety
Assessment / Plan
Assessment / Plan
Physical Exam
General: No Apparent Distress and Conversant
HEENT: PERRLA. NG tube
Respiratory: Clear; No Wheezes
Cardiac: S1/S2 and Regular Rhythm
GI: Soft and mildly tender. Clean suture ( mid lower abdomen). + BS. Musculoskeletal: No Edema
Skin: Warm and Dry; No Rash
Neuro: AO x 3
Psych: Calm
Assessment:
# Recurrent SBO with extensive adhesions
s/p Laparoscopy converted to laparotomy with extensive lysis of adhesions by Dr Mak on 07/04/24. No complications reported
C/W Bowel rest. NPO. NG was on suction. Repositioned the NG on 07/09
IVF, PIC line and TPN
She reports passing small bowel movements. NGT clamp trial
S/P Empiric ABx
Pain control regimen with PRN ( IV Tylenol, IV Toradol, IV Ativan). Patient tries to avoid PRN IV morphine due to side effects.
Monitored vitals.
Appreciate surgery help
# Hypophosphatemia
replace
# Mild acute blood loss anemia.
# Hypokalemia
replace
# Hyperglycemia, induced by TPN
start ISS
#Hx of CVA
- Held Plavix until safe to resume post op
d/w surgery,ok to resume aspirin rectally for now.
# Hypokalemia, replaced
#Essential HTN
Slightly uncontrolled.
Changed to IV BB with Metoprolol
Vanita dd PRN IV Hydralazine
#GERD
- continue PPI
#Iodine allergy
- prn Benadryl/Claritin for post-contrast hives
DVT ppx: Lovenox
Code: Full
Total time spent to see the patient, examine the patient on the floor, review data and lab results, discuss treatment plan with patient, nursing staff around 55 minutes.
Anticipated Discharge: > 48 hours
Subjective/Interval History
-
Date of Service: July 10, 2024
No chest pain
No sob
No fevers
Patient reports passing small BMs.
Objective Data
-
Labs:
Laboratory Results
07/10/24
05:26
WBC 9.1
Hgb 9.9 L
Hct 28.3 L
Plt Count 237
Sodium 138
Potassium 3.9
Chloride 104
Carbon Dioxide 27
BUN 16
Creatinine 0.4 L
Glucose 174 H
Calcium 8.9
Vital Signs:
Vital Signs
Temp Pulse Resp BP Pulse Ox
99.3 F 100 16 157/75 97
07/10/24 08:12 07/10/24 08:12 07/10/24 08:12 07/10/24 08:12 07/10/24 08:12
I&O
07/09/24 07/10/24 07/11/24
06:59 06:59 06:59
Intake Total 2502 / 2502 1346 / 1346
Output Total 900 / 900 850 / 850
Balance 1602 / 1602 496 / 496
[2024-07-10 11:48] LABS: Glucose - Point of Care 202 mg/dl (70-99)
[2024-07-10] MEDS: NOVOLOG FLEXPEN-MODERATE RESISTANCE 3 UNITS SC (11:49)
[2024-07-10 14:50] VITALS: BP 155/89
--- NOTE | 2024-07-10 16:32 | PTCARENOTE ---
Gastric residual checked per order. 0mL gastric residual. NG tube removed per order.
[2024-07-10] MEDS: LOVENOX 40 MG SC (17:12)
[2024-07-10 18:08] LABS: Glucose - Point of Care 177 mg/dl (70-99)
[2024-07-10 19:06] VITALS: BP 148/65
[2024-07-10] MEDS: Parenteral Nutrition, Central 2000 IV (20:54)
[2024-07-10 23:50] LABS: Glucose - Point of Care 173 mg/dl (70-99)
[2024-07-10 23:52] VITALS: BP 150/67
[2024-07-11] VITALS (7 sets, daily range): BP systolic 132–172; BP diastolic 60–78; BMI 23.3
[2024-07-11] MEDS: LOPRESSOR 5 MG IV ×5 (00:16→23:21)
[2024-07-11] MEDS: NOVOLOG FLEXPEN-MODERATE RESISTANCE 1 UNITS SC ×5 (00:16→23:19)
[2024-07-11 04:52] LABS: Hematocrit 27.4 % (37.0-47.0); Hemoglobin 9.5 g/dL (12.0-16.0); Mean Corp Hgb Conc. 34.7 g/dL (33.0-37.0); Mean Corpuscular Hgb 30.6 pg (27.0-31.0); Mean Corpuscular Volume 88.4 fL (81.0-99.0); Mean Platelet Volume 9.8 fL (7.4-10.4); Platelet Count 220 10^3/uL (130-400); Red Cell Dist. Width 12.6 % (11.5-14.5); White Blood Cell Count 6.9 10^3/uL (4.8-10.8)
[2024-07-11 05:14] LABS: ALT (SGPT) 15 U/L (0-35); AST (SGOT) 17 U/L (14-36); Albumin 3.1 g/dl (3.5-5.0); Alkaline Phosphatase 33 U/L (38-126); Blood Urea Nitrogen 16 mg/dl (7-17); Carbon Dioxide 27 mmol/L (22-30); Chloride 106 mmol/L (98-107); Estimated Creatinine Clearance 65 ml/min; Glucose 174 mg/dl (70-99); Magnesium 2.2 mg/dl (1.6-2.3); Phosphorus 3.5 mg/dl (2.5-4.5); Potassium 4.2 mmol/L (3.5-5.1); Sodium 137 mmol/L (135-145); Total Bilirubin 0.3 mg/dl (0.2-1.3); Total Protein 5.3 g/dl (6.3-8.2); Triglycerides 228 mg/dl (10-149); eGFR > 60.00
[2024-07-11] MEDS: PROTONIX IV 40 MG IV ×2 (07:22→20:30)
[2024-07-11] MEDS: NSS (PRESERVATIVE FREE) 10 ML IV ×2 (07:23→20:29)
[2024-07-11] MEDS: ERYTHROMYCIN 0.5% OPHTHALMIC OINTMENT 1 APPLIC LEFT EYE ×4 (07:23→20:57)
[2024-07-11] MEDS: ASPIRIN RECTAL (07:24)
[2024-07-11] MEDS: LOW STRENGTH ASPIRIN 81 MG PO (07:36)
--- NOTE | 2024-07-11 08:13 | W.PN.GS2 ---
Addendum entered and electronically signed by [place] MD 07/11/24 08:27:
Patient seen and examined.
In good spirits with no complaints. Denies worsening abdominal pain or bloating. No nausea or vomiting. Continues to pass flatus, last BM yesterday morning. Reports improvement and LEFT eye redness, though not completely back to normal.
Afebrile. Ambulating.
Gen: NAD
Abd: soft, minimal tenderness, mild distension, non-peritoneal, incision c/d/i - ecchymosis, no erythema or drainage
79 y/o female POD#7 s/p lap -> laparotomy with extensive adhesiolysis (complete) for recurrent pSBOs
AFVSS
NGT out on 07/10. Doing well since removal
Labs stable
Plan:
-- Continue multimodal pain control. Change Tylenol to PO
-- Trial of clears
-- C/W erythromycin ointment to left eye
-- TPN renewed (1.8L volume), will continue until good PO intake, C/W sliding scale insulin while on TPN
-- Protonix for GI ppx, increased to BID given blood tinged NGT outputs
-- Lovenox for VTEp
-- ASA okay: changed to PO dose, continue to hold Plavix
Original Note:
Today's Communication / Plan
-
Trial of clears
Assessment / Plan
-
Assessment: 79 y/o female POD#7 s/p lap -> laparotomy with extensive adhesiolysis (complete) for recurrent pSBOs
AFVSS
NGT out on 07/10. Doing well since removal
Labs stable
Plan: Continue multimodal pain control. Change tylenol to PO
Trial of clears
c/w erythromycin ointment to left eye
TPN renewed (1.8L volume), will continue until good PO intake
C/W sliding scale insulin while on TPN
Protonix for GI ppx, increased to BID given blood tinged NGT outputs
Lovenox for VTEp
ASA okay: changed to PO dose, continue to hold Plavix
Subjective Data
-
Date of Service: July 11, 2024
Patient seen and examined at bedside with Dr. Brown. Denies nausea or vomiting. Passing flatus. Last BM was thursday morning and small. She notes eye irritation still present on the left but erythema to the eye improved. Sore throat persists since
removal of NGT
Objective Data
-
Intake and Output
07/10/24 07/11/24 07/12/24
06:59 06:59 06:59
Intake Total 1346 / 1346 2196 / 2196
Output Total 850 / 850 100 / 100
Balance 496 / 496 2095 / 2095
Intake:
IV fluids (Total) 200 / 200
IV piggybacks 200 / 200
TPN/PPN 996 / 996 1995
Amount instilled into GI Tube ( 150 / 150
Total)
[place] Sump 150 / 150
Output:
Gastrointestinal tube output ( 450 / 450 100 / 100
Total)
[place] Sump 450 / 450 100 / 100
Urine, Voided 400 / 400
Other:
Number of approximated MODERATE 2 5
amounts of urine
Vital Signs
Temp Pulse Resp BP Pulse Ox
98.7 F 93 17 132/60 97
07/11/24 07:49 07/11/24 07:49 07/11/24 07:49 07/11/24 07:49 07/11/24 07:49
Lab Results
07/11/24 04:43
07/11/24 04:43
Calcium 9.0 mg/dl (8.4-10.2) 07/11/24 04:43
Phosphorus 3.5 mg/dl (2.5-4.5) 07/11/24 04:43
Magnesium 2.2 mg/dl (1.6-2.3) 07/11/24 04:43
Total Bilirubin 0.3 mg/dl (0.2-1.3) 07/11/24 04:43
AST 17 U/L (14-36) 07/11/24 04:43
ALT 15 U/L (0-35) 07/11/24 04:43
Alkaline Phosphatase 33 U/L (38-126) L 07/11/24 04:43
Total Protein 5.3 g/dl (6.3-8.2) L 07/11/24 04:43
Albumin 3.1 g/dl (3.5-5.0) L 07/11/24 04:43
Physical Exam
-
Gen: NAD
Left eye with mildly injected sclera, edema
Abd: soft, NT, mild distension, non-peritoneal, incisions c/d/i - no erythema, some surrounding ecchymosis
[2024-07-11 11:57] LABS: Glucose - Point of Care 178 mg/dl (70-99)
--- NOTE | 2024-07-11 12:00 | CM ---
Chart reviewed and NGT out since 07/10, patient is currently ambulating the hallway. Plan is to home when stable, no needs.
Plan; Home no needs when stable.
--- NOTE | 2024-07-11 12:40 | W.PN.HOSP.TC ---
Today's Communication/Plan
-
clears + TPN
follow GS recs
Assessment / Plan
Assessment / Plan
Assessment:
Recurrent SBO with extensive adhesions
- s/p Laparoscopy converted to laparotomy with extensive lysis of adhesions by Dr Mak on 07/04/24. No complications reported
- continue clears + TPN
- NGT was removed 3 days ago
- s/p empiric IV abx course
- continue pain control, anti-emetics
- continue ambulation
- follow GS recs
Hypophosphatemia
- replace prn
Mild acute blood loss anemia.
Hypokalemia
- replace prn
Hyperglycemia, induced by TPN
- continue ISS
Hx of CVA
- Held Plavix until cleared by GS for resumption
- continue ASA
Hypokalemia, replaced
Essential HTN
- continue IV Metoprolol
- prn Hydralazine
GERD
- continue PPI
Iodine allergy
- prn Benadryl/Claritin for post-contrast hives
L eye conjunctivitis from rhinosinusitis
- continue erythromycin ophthalmic drops
DVT ppx: Lovenox
Code: Full
Anticipated Discharge: > 48 hours
Subjective/Interval History
-
Date of Service: July 11, 2024
reports L eye redness improving. no pain, some mild swelling persists
Objective Data
-
Labs:
Laboratory Results
07/11/24
04:43
WBC 6.9
Hgb 9.5 L
Hct 27.4 L
Plt Count 220
Sodium 137
Potassium 4.2
Chloride 106
Carbon Dioxide 27
BUN 16
Creatinine 0.4 L
Glucose 174 H
Calcium 9.0
Total Bilirubin 0.3
AST 17
ALT 15
Alkaline Phosphatase 33 L
Vital Signs:
Vital Signs
Temp Pulse Resp BP Pulse Ox
98.1 F 96 18 144/78 99
07/11/24 11:21 07/11/24 11:21 07/11/24 11:21 07/11/24 11:21 07/11/24 11:21
I&O
07/10/24 07/11/24 07/12/24
06:59 06:59 06:59
Intake Total 1346 / 1346 2196 / 2196
Output Total 850 / 850 100 / 100
Balance 496 / 496 2095 / 2095
Physical Exam
-
General: No Apparent Distress
HEENT: Normocephalic and Atraumatic
Respiratory: Negative Wheezes
Cardiac: Regular Rhythm and S1/S2
GI: Soft
Musculoskeletal: No Edema
Neuro: AO x 3
Hematologic / Lymphatic: No Lymphadenopathy
Psych: Calm
Data Reviewed
-
Total Time Spent with Patient (in minutes): 42
Labs: Labs Reviewed by me
[2024-07-11] MEDS: APRESOLINE 5 MG IV (15:53)
[2024-07-11 17:48] LABS: Glucose - Point of Care 182 mg/dl (70-99)
[2024-07-11] MEDS: LOVENOX 40 MG SC (17:49)
[2024-07-11] MEDS: Parenteral Nutrition, Central 1800 IV (20:49)
[2024-07-11 21:50] LABS: Glucose - Point of Care 158 mg/dl (70-99)
[2024-07-11] MEDS: ANESTHETIC LOZENGE 1 LOZENGE PO (23:16)
[2024-07-12 03:20] VITALS: BP 128/58
[2024-07-12 06:00] VITALS: BMI 23.2
[2024-07-12 06:11] LABS: Glucose - Point of Care 165 mg/dl (70-99)
[2024-07-12] MEDS: LOPRESSOR 5 MG IV ×4 (06:16→23:10)
[2024-07-12] MEDS: NOVOLOG FLEXPEN-MODERATE RESISTANCE 1 UNITS SC ×3 (06:19→17:59)
[2024-07-12 07:31] VITALS: BP 140/68
--- NOTE | 2024-07-12 07:31 | W.PN.GS2 ---
Today's Communication / Plan
-
- Fulls, ADAT to LRD this afternoon if patient desires
- No need for further TPN
- C/W erythromycin ointment to left eye, defer to Hospitalist on further work-up and management
- C/W sliding scale insulin while on TPN, monitor with transition off today
- Resume home medictaions, OK for ASA and Plavix
Assessment / Plan
-
Assessment: 79 y/o female POD#8 s/p lap -> laparotomy with extensive adhesiolysis (complete) for recurrent pSBOs
AFVSS
Eye asymmetry unknown exact cause possibly due to severe sinusitis from NGT
Advancing diet, ROBF
Plan:
- Fulls, ADAT to LRD this afternoon if patient desires
- No need for further TPN
- Pain control: Tylenol, Toradol, Tramadol
- C/W erythromycin ointment to left eye, defer to Hospitalist on further work-up and management
- C/W sliding scale insulin while on TPN, monitor with transition off today
- GI: Protonix
- DVT: Lovenox
- Resume home medictaions, OK for ASA and Plavix
Subjective Data
-
Date of Service: July 12, 2024
No complaints. Denies nausea or vomiting. Passing flatus and nonbloody BM overnight. Voiding. Ambulating. No visual disturbances, continues to have some discomfort in her LEFT maxillary sinus and throat. No issues with swallowing.
Objective Data
-
Intake and Output
07/11/24 07/12/24 07/13/24
06:59 06:59 06:59
Intake Total 2196 / 2196 2436 / 2436
Output Total 100 / 100
Balance 2095 / 2095 2436 / 2436
Intake:
Oral fluids 1440 / 1440
IV fluids (Total) 200 / 200
TPN/PPN 1995 996 / 996
Output:
Gastrointestinal tube output ( 100 / 100
Total)
[place] Sump 100 / 100
Other:
Number of approximated MODERATE 5 11
amounts of urine
Vital Signs
Temp Pulse Resp BP Pulse Ox
98.7 F 100 18 161/85 96
07/12/24 03:20 07/12/24 06:16 07/12/24 03:20 07/12/24 06:16 07/12/24 03:20
Lab Results
07/11/24 04:43
07/11/24 04:43
Calcium 9.0 mg/dl (8.4-10.2) 07/11/24 04:43
Phosphorus 3.5 mg/dl (2.5-4.5) 07/11/24 04:43
Magnesium 2.2 mg/dl (1.6-2.3) 07/11/24 04:43
Total Bilirubin 0.3 mg/dl (0.2-1.3) 07/11/24 04:43
AST 17 U/L (14-36) 07/11/24 04:43
ALT 15 U/L (0-35) 07/11/24 04:43
Alkaline Phosphatase 33 U/L (38-126) L 07/11/24 04:43
Total Protein 5.3 g/dl (6.3-8.2) L 07/11/24 04:43
Albumin 3.1 g/dl (3.5-5.0) L 07/11/24 04:43
Physical Exam
-
Gen: NAD
HEENT: asymmetry of iris (R>L), pupils equal, mild scleral erythema, vision intact
Abd: soft, mild tenderness, mild distension, non-peritoneal, incision c/d/i - ecchymosis, no erythema or drainage
[2024-07-12] MEDS: LOW STRENGTH ASPIRIN 81 MG PO (07:38)
[2024-07-12] MEDS: PROTONIX IV 40 MG IV (07:38)
[2024-07-12] MEDS: ERYTHROMYCIN 0.5% OPHTHALMIC OINTMENT 1 APPLIC LEFT EYE ×4 (07:38→22:12)
[2024-07-12] MEDS: NSS (PRESERVATIVE FREE) 10 ML IV (07:38)
[2024-07-12 11:00] VITALS: BP 138/64
[2024-07-12 12:17] LABS: Glucose - Point of Care 173 mg/dl (70-99)
--- NOTE | 2024-07-12 13:32 | W.PN.HOSP.TC ---
Today's Communication/Plan
-
FLD per GS
cap TPN after final bag
Assessment / Plan
Assessment / Plan
Assessment:
Recurrent SBO with extensive adhesions
- s/p Laparoscopy converted to laparotomy with extensive lysis of adhesions by Dr Mak on 07/04/24. No complications reported
- NGT was removed 3 days ago
- diet: Full liquids; advance per GS recs
- finish TPN
- s/p empiric IV abx course
- continue pain control, anti-emetics
- continue ambulation
- follow GS recs
Hypophosphatemia
- replace prn
Mild acute blood loss anemia.
Hypokalemia
- replace prn
Hyperglycemia, induced by TPN
- continue ISS
Hx of CVA
- continue ASA, resume Plavix tonight
Hypokalemia, replaced
Essential HTN
- continue IV Metoprolol
- prn Hydralazine
GERD
- continue PPI
Iodine allergy
- prn Benadryl/Claritin for post-contrast hives
L eye conjunctivitis from rhinosinusitis
- continue erythromycin ophthalmic drops for 10 days (finish day 07/19)
- OP ophtho f/u
DVT ppx: Lovenox
Code: Full
Anticipated Discharge: 24 - 48 hours
Subjective/Interval History
-
Date of Service: July 12, 2024
tolerating full liquids
BM last evening
Objective Data
-
Vital Signs:
Vital Signs
Temp Pulse Resp BP Pulse Ox
98.6 F 100 16 121/73 99
07/12/24 11:00 07/12/24 12:18 07/12/24 11:00 07/12/24 12:18 07/12/24 11:00
I&O
07/11/24 07/12/24 07/13/24
06:59 06:59 06:59
Intake Total 2195 2432435
Output Total 100 / 100
Balance 2095
Physical Exam
-
General: No Apparent Distress
HEENT: Normocephalic and Atraumatic
Respiratory: Negative Wheezes
Cardiac: Regular Rhythm and S1/S2
GI: Soft and Nontender
Genito-urinary: No Costovertebral Tender
Neuro: AO x 3
Psych: Calm
Data Reviewed
-
Total Time Spent with Patient (in minutes): 42
Labs: Labs Reviewed by me
--- NOTE | 2024-07-12 14:15 | CM ---
Diet to advance home when stable.
Plan; Home when stable.
[2024-07-12 14:57] VITALS: BP 130/65
[2024-07-12] MEDS: TYLENOL 650 MG PO (17:42)
[2024-07-12 17:53] LABS: Glucose - Point of Care 183 mg/dl (70-99)
[2024-07-12] MEDS: LOVENOX 40 MG SC (17:56)
[2024-07-12] MEDS: PROTONIX 40 MG PO (19:27)
[2024-07-12 19:31] VITALS: BP 130/68
[2024-07-12] MEDS: CRESTOR 20 MG PO (22:12)
[2024-07-12] MEDS: PLAVIX 75 MG PO (22:12)
[2024-07-12 23:09] VITALS: BP 147/63
[2024-07-12 23:21] LABS: Glucose - Point of Care 95 mg/dl (70-99)
[2024-07-12] MEDS: ANESTHETIC LOZENGE 1 LOZENGE PO (23:31)
[2024-07-12] MEDS: NOVOLOG FLEXPEN-MODERATE RESISTANCE SC (23:31)
[2024-07-13 04:35] LABS: Glucose - Point of Care 112 mg/dl (70-99)
[2024-07-13 04:41] VITALS: BP 116/63
[2024-07-13] MEDS: NOVOLOG FLEXPEN-MODERATE RESISTANCE SC ×2 (05:11→12:05)
[2024-07-13] MEDS: LOPRESSOR 5 MG IV ×2 (05:14→12:03)
[2024-07-13 05:27] VITALS: BMI 22.9
[2024-07-13 08:05] VITALS: BP 128/65
[2024-07-13] MEDS: ZETIA 10 MG PO (08:53)
[2024-07-13] MEDS: LOW STRENGTH ASPIRIN 81 MG PO (08:53)
[2024-07-13] MEDS: ERYTHROMYCIN 0.5% OPHTHALMIC OINTMENT 1 APPLIC LEFT EYE ×2 (08:53→12:05)
[2024-07-13] MEDS: PROTONIX 40 MG PO (08:53)
[2024-07-13] MEDS: TYLENOL 650 MG PO (08:55)
[2024-07-13 11:45] VITALS: BP 140/72
--- NOTE | 2024-07-13 11:55 | W.PN.GS2 ---
Today's Communication / Plan
-
DC
Assessment / Plan
-
Assessment: 79 y/o female POD#9 s/p lap -> laparotomy with extensive adhesiolysis (complete) for recurrent pSBOs
AFVSS
Eye asymmetry unknown exact cause possibly due to severe sinusitis from NGT
Advancing diet, ROBF
Plan:
- Cont LRD
- Pain control: Tylenol, Toradol, Tramadol
- C/W erythromycin ointment to left eye, defer to Hospitalist on further work-up and management
- C/W sliding scale insulin while on TPN, monitor with transition off today
- GI: Protonix
- DVT: Lovenox
- Resume home medictaions, OK for ASA and Plavix
- OK for DC home from surg standpoint
Subjective Data
-
Date of Service: July 13, 2024
AFVSS, OOBTC, ambulating, elina LRD, no complaints
Objective Data
-
Intake and Output
07/12/24 07/13/24 07/14/24
06:59 06:59 06:59
Intake Total 3356 / 3356 2460 / 2460
Balance 3356 / 3356 2460 / 2460
Intake:
Oral fluids 1440 / 1440 1560 / 1560
IV fluids (Total) 0 / 0
IV piggybacks 0 / 0
TPN/PPN 1915 / 1915 900 / 900
Other:
Number of approximated MODERATE 11 4
amounts of urine
Vital Signs
Temp Pulse Resp BP Pulse Ox
98.0 F 96 16 128/65 96
07/13/24 08:05 07/13/24 08:05 07/13/24 08:05 07/13/24 08:05 07/13/24 08:05
Lab Results
07/11/24 04:43
07/11/24 04:43
Calcium 9.0 mg/dl (8.4-10.2) 07/11/24 04:43
Phosphorus 3.5 mg/dl (2.5-4.5) 07/11/24 04:43
Magnesium 2.2 mg/dl (1.6-2.3) 07/11/24 04:43
Total Bilirubin 0.3 mg/dl (0.2-1.3) 07/11/24 04:43
AST 17 U/L (14-36) 07/11/24 04:43
ALT 15 U/L (0-35) 07/11/24 04:43
Alkaline Phosphatase 33 U/L (38-126) L 07/11/24 04:43
Total Protein 5.3 g/dl (6.3-8.2) L 07/11/24 04:43
Albumin 3.1 g/dl (3.5-5.0) L 07/11/24 04:43
Physical Exam
-
Gen: NAD
Abd: soft, nt
--- NOTE | 2024-07-13 12:18 | CM ---
Chart reviewed diet advanced home with stable, no needs.
Plan; Home when stable, no needs.
--- NOTE | 2024-07-13 12:42 | W.PN.HOSP.TC ---
Today's Communication/Plan
-
dc to home
Assessment / Plan
Assessment / Plan
Assessment:
Recurrent SBO with extensive adhesions
- s/p Laparoscopy converted to laparotomy with extensive lysis of adhesions by Dr Mak on 07/04/24. No complications reported
- NGT was removed 3 days ago
- tolerating LRD
- DC home with GS f/u in 2-3 weeks
Hypophosphatemia
- replace prn
Mild acute blood loss anemia.
Hypokalemia
- replace prn
Hyperglycemia, induced by TPN
- resolved off TPN
Hx of CVA
- continue ASA/Plavix
Hypokalemia, replaced
Essential HTN
- continue home BP Meds
GERD
- continue PPI
Iodine allergy
- prn Benadryl/Claritin for post-contrast hives
L eye conjunctivitis from rhinosinusitis
- continue erythromycin ophthalmic drops for 7 days (finish day 07/16)
- OP ophtho f/u
DVT ppx: Lovenox
Code: Full
More than 30 minutes spent in discharge including
Final examination of the patient
Summarizing hospital stay
Instructions for continuing care to all relevant caregivers
Preparation of discharge records, prescriptions, and referral forms
Total time spent (in minutes): 41
Anticipated Discharge: Today
Subjective/Interval History
-
Date of Service: July 13, 2024
denies any new complaints
tolerating LRD
Objective Data
-
Vital Signs:
Vital Signs
Temp Pulse Resp BP Pulse Ox
98.2 F 102 16 140/72 96
07/13/24 11:45 07/13/24 12:03 07/13/24 11:45 07/13/24 12:03 07/13/24 11:45
I&O
07/12/24 07/13/24 07/14/24
06:59 06:59 06:59
Intake Total 3356 / 6 2460 / 2460
Balance 3356 / 6 2460 / 2460
Physical Exam
-
General: No Apparent Distress
HEENT: Normocephalic and Atraumatic
Respiratory: Negative Wheezes
Cardiac: Regular Rhythm and S1/S2
GI: Soft and Nontender
Genito-urinary: No Costovertebral Tender
Musculoskeletal: No Edema
Neuro: AO x 3
Hematologic / Lymphatic: No Lymphadenopathy
Psych: Calm
Data Reviewed
-
Total Time Spent with Patient (in minutes): 42
Labs: Labs Reviewed by me
--- NOTE | 2024-07-13 12:52 | W.DS.TRANS ---
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
-
Discharge Instructions:
Discharge Diagnosis/Procedures small bowel obstruction status post diagnostic
laparoscopy with exploratory laparotomy for
lysis of adhesions
Diet Low Fiber
Activity No strenuous activity
Additional Activity Do not lift over 15 lbs for the next 4-6 weeks
Driving Restrictions Wait until off narcotics/comfortable twisting
Bathing Restrictions OK to Shower
Instructions: Low Fiber Diet
Stand-Alone Forms:
Changes to Home Medications: No
Discharge Medications:
DC Medications w/original date entered in [facility]
aspirin 81 mg chewable tablet 81 mg PO DAILY Blood clot prevention/tx 12/27/22
clopidogrel 75 mg tablet (Plavix) 75 mg PO HS Blood clot prevention/tx 12/27/22
coQ10 (ubiquinol) 100 mg capsule 100 mg PO BID Supplement 12/27/22
ezetimibe 10 mg tablet (Zetia) 10 mg PO SUMOWEFR High cholesterol 12/27/22
losartan 50 mg tablet 50 mg PO BID Blood pressure 12/27/22
amlodipine 5 mg tablet (Norvasc) 5 mg PO DAILY Blood Pressure 07/01/24
metoprolol succinate 50 mg tablet,extended release 24 hr (Toprol XL) 75 mg PO BID Blood Pressure 07/01/24
pantoprazole 40 mg tablet,delayed release (Protonix) 40 mg PO DAILY Gastrointestinal Issue 07/01/24
rosuvastatin 20 mg tablet 20 mg PO HS High Cholesterol 07/01/24
erythromycin 5 mg/gram (0.5 %) eye ointment 1 applic LEFT EYE QID #3.5 grams 07/13/24
Home Medication Changes
Pending Results: No
Total time spent discharging patient (in min): 42
[2024-07-13] MEDS: ZOFRAN 4 MG IV (13:18)
== END 2024-07-13 14:29 | disposition home or self-care (01) | DRG 327 ==
LOC: 2 SOUTH 02:14
PROVIDERS: Emergency Medicine; Internal Medicine; Radiology Diagnostic Radiology; Registered Nurse; ADMITTING PHYSICIAN Student in an Organized Health Care Education/Training Program; ATTENDING PHYSICIAN Internal Medicine; EMERGENCY PHYSICIAN Emergency Medicine; FAMILY PHYSICIAN Physician Assistant; OTHER PHYSICIAN Surgery
PROC: 0DJ04ZZ Inspection of Upper Intestinal Tract, Percutaneous Endoscopic Approach (ICD-10-PCS; 2024-07-04)
PROC: 0DN80ZZ Release Small Intestine, Open Approach (ICD-10-PCS; 2024-07-04)
PROC: 3E0436Z Introduction of Nutritional Substance into Central Vein, Percutaneous Approach (ICD-10-PCS; 2024-07-05)
PROC: 05H433Z Insertion of Infusion Device into Left Innominate Vein, Percutaneous Approach (ICD-10-PCS; 2024-07-06)
PROC: 02WY33Z Revision of Infusion Device in Great Vessel, Percutaneous Approach (ICD-10-PCS; 2024-07-06)
DX: K56.51 Intestinal adhesions [bands], with partial obstruction (principal); D62 Acute posthemorrhagic anemia; K21.9 Gastro-esophageal reflux disease without esophagitis; I10 Essential (primary) hypertension; E78.5 Hyperlipidemia, unspecified; E83.39 Other disorders of phosphorus metabolism; E87.6 Hypokalemia; R73.9 Hyperglycemia, unspecified; H10.9 Unspecified conjunctivitis; J32.9 Chronic sinusitis, unspecified; Z79.82 Long term (current) use of aspirin; Z79.02 Long term (current) use of antithrombotics/antiplatelets; Z79.899 Other long term (current) drug therapy; Z86.73 Personal history of transient ischemic attack (TIA), and cerebral infarction without residual deficits; Z91.041 Radiographic dye allergy status; Z90.710 Acquired absence of both cervix and uterus; Z90.49 Acquired absence of other specified parts of digestive tract; Z53.31 Laparoscopic surgical procedure converted to open procedure
CPT/HCPCS: 51701; 71045; 74018; 74177; 80048; 80053; 81003; 81015; 82962; 83690; 83735; 84100; 84478; 85025; 85027; 85610; 85730; 86850; 86900; 86901; 87086; 96361; 96374; 96375; 96376; 99285; Q9967

== ENCOUNTER → 2024-09-28 09:54 | Outpatient (REF) | payer OTHER, SELFPAY | LOC: MRI 3T 09:54 | PROVIDERS: ATTENDING PHYSICIAN Physician Assistant; FAMILY PHYSICIAN Internal Medicine | DX: I65.1 Occlusion and stenosis of basilar artery (principal) | CPT/HCPCS: 70546; A9585 ==

== ENCOUNTER → 2025-01-20 11:43 | Outpatient (REF) | payer OTHER, SELFPAY | LOC: WDC 11:43 | PROVIDERS: ATTENDING PHYSICIAN Physician Assistant | DX: Z12.31 Encounter for screening mammogram for malignant neoplasm of breast (principal) | CPT/HCPCS: 77063; 77067 ==

== ENCOUNTER → 2025-03-02 08:14 | Outpatient (REF) | payer OTHER, SELFPAY | LOC: RCS 08:14 | PROVIDERS: ATTENDING PHYSICIAN Internal Medicine Cardiovascular Disease; FAMILY PHYSICIAN Internal Medicine | DX: R06.09 Other forms of dyspnea (principal); I10 Essential (primary) hypertension; I63.9 Cerebral infarction, unspecified | CPT/HCPCS: 93017; 93350 ==

== ENCOUNTER → 2025-03-07 08:57 | Outpatient (REF) | payer MEDICARE, SELFPAY | LOC: RCS 08:57 | PROVIDERS: ATTENDING PHYSICIAN Internal Medicine Cardiovascular Disease; FAMILY PHYSICIAN Internal Medicine | DX: R06.09 Other forms of dyspnea (principal); I10 Essential (primary) hypertension; I63.9 Cerebral infarction, unspecified | CPT/HCPCS: 93306 ==